=== PATIENT | male | born 1985 | race Caucasian/White ===

== ENCOUNTER 2017-03-23 16:11 | Inpatient (IN) | payer OTHER ==
[2017-03-23 17:54] VITALS: BMI 23.2
--- NOTE | 2017-03-23 19:56 | HP ---
COWS - Scale Resting Pulse: 0= [place] 80 or Below Sweatin= Chills/Flushing Restless Observation: 3= Extraneous Movement Pupil Size: 0= Normal to Room Light Bone or Joint Aches: 2= Severe Diffuse Aches Runny Nose/ Eye Tearin= Runny Nose/Eyes GI Upset > 30mins: 1= Stomach Cramp Tremor Observation: 2= Slight Tremor Visible Yawning Observation: 1= 1-2x During Session Anxiety or Irritability: 2=Irritable/Anxious Goose Flesh Skin: 0=Smooth Skin COWS Score: 14 Admission [facility] Chief Complaint: WITHDRAWAL SX Allergies/Adverse Reactions: Allergies Allergy/AdvReac Type Severity Reaction Status Date / Time No Known Allergies Allergy Verified 03/23/17 20:23 History of Present Illness: 31 YEARS OLD MALE WITH LONG HISTORY OF OPIOID NICOTINE DEPENDENCE, HAS TOOTH ACHE, POSITIVE PPD AND DEPRESSION IS ADMITTED TO DETOX Exam Limitations: No Limitations - Ebola screening Have you traveled outside of the country in the last 21 days: No Have you had contact with anyone from an Ebola affected area: No Have you been sick,other than usual withdrawal symptoms: No Do you have a fever: No - Review of Systems Constitutional: Chills, Changes in sleep, Weight Stable EENT: reports: Dental Problems (TOOTH ACHE) Respiratory: reports: No Symptoms reported Cardiac: reports: No Symptoms Reported GI: reports: Nausea, Poor Fluid Intake, Abdominal cramping : reports: No Symptoms Reported Musculoskeletal: reports: Back Pain, Joint Pain, Muscle Pain, Neck Pain Integumentary: reports: No Symptoms Reported Neuro: reports: Tremors Endocrine: reports: No Symptoms Reported Hematology: reports: No Symptoms Reported Psychiatric: reports: Judgement Intact, Orientated x3, Anxious, Depressed Other Systems: Reviewed and Negative Patient History - Patient Medical History Hx Anemia: No Hx Asthma: No Hx Chronic Obstructive Pulmonary Disease (COPD): No Hx Cancer: No Hx Cardiac Disorders: No Hx Congestive Heart Failure: No Hx Hypertension: No Hx Hypercholesterolemia: No Hx Pacemaker: No HX Cerebrovascular Accident: No Hx Seizures: No Hx Dementia: No Hx Diabetes: No Hx Gastrointestinal Disorders: No Hx Liver Disease: No Hx Genitourinary Disorders: No Hx Sexually Transmitted Disorders: No Hx Renal Disease (ESRD): No Hx Thyroid Disease: No Hx Human Immunodeficiency Virus (HIV): No Hx Hepatitis C: No Hx Depression: Yes Hx Suicide Attempt: No Hx Bipolar Disorder: No Hx Schizophrenia: No - Patient Surgical History Past Surgical History: Yes Hx Neurologic Surgery: No Hx Cataract Extraction: No Hx Cardiac Surgery: No Hx Lung Surgery: No Hx Breast Surgery: No Hx Breast Biopsy: No Hx Abdominal Surgery: No Hx Appendectomy: No Hx Cholecystectomy: No Hx Genitourinary Surgery: No Hx Orthopedic Surgery: No Other Surgical History: s/p tonsillectomy DURING CHILDHOOD Anesthesia Reaction: No - PPD History Previous Implant?: Yes Documented Results: Positive w/o proof Implanted On Prior [facility] Admission?: Yes Date: 09/03/15 Results: 15mm PPD to be Administered?: No - Smoking Cessation Smoking history: Current every day smoker Have you smoked in the past 12 months: Yes Aproximately how many cigarettes per day: 20 Cigars Per Day: 0 Hx Chewing Tobacco Use: No Initiated information on smoking cessation: Yes 'Breaking Loose' booklet given: 03/23/17 - Substance & Tx. History Hx Alcohol Use: No Hx Substance Use: Yes Substance Use Type: Alcohol, Cocaine, Opiates Hx Substance Use Treatment: Yes - Substances Abused Heroin Route: Inhalation Frequency: Daily Amount used: 5 BAGS Age of first use: 28 Date of Last Use: 03/22/17 Family Disease History - Family Disease History Family History: Unremarkable Admission Physical Exam BHS - Vital Signs Vital Signs: Vital Signs - 24 hr 03/23/17 17:48 Temperature 97.4 F L Pulse Rate 73 Respiratory 18 Rate Blood Pressure 109/66 - Physical General Appearance: Yes: Appropriately Dressed, Mild Distress, Thin, Tremorous, Irritable, Sweating, Anxious HEENTM: Yes: Hearing grossly Normal, Normal ENT Inspection, Normocephalic, Normal Voice Respiratory: Yes: Chest Non-Tender, Lungs Clear, Normal Breath Sounds, No Respiratory Distress, No Accessory Muscle Use Neck: Yes: Supple, Trachea in good position Breast: Yes: Breasts Symetrical Cardiology: Yes: Regular Rhythm, Regular Rate, S1, S2 Abdominal: Yes: Non Tender, Soft Genitourinary: Yes: Within Normal Limits Back: Yes: Normal Inspection Musculoskeletal: Yes: full range of Motion, Gait Steady, Back pain, Muscle Pain Extremities: Yes: Normal Inspection, Normal Range of Motion, Non-Tender, Tremors 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: Yes: Fully Oriented, Alert, Motor Strength 5/5, Normal Response, Depressed Affect Integumentary: Yes: Warm Lymphatic: Yes: Within Normal Limits - Diagnostic (1) Opioid dependence with withdrawal Status: Acute (2) Nicotine dependence Status: Acute Qualifiers: Nicotine product type: cigarettes Substance use status: in withdrawal Qualified Code(s): F17.213 - Nicotine dependence, cigarettes, with withdrawal (3) Positive PPD, treated Status: Resolved (4) Depression Status: Suspected Qualifiers: Depression Type: dysthymia Qualified Code(s): F34.1 - Dysthymic disorder (5) Atypical toothache Status: Acute Comment: LIDOCAINE BEFORE EACH MEAL Cleared for Admission [facility] - Detox or Rehab [facility] Level of Care: Medically Managed Detox Regimen/Protocol: Methadone [facility] Breath Alcohol Content Breath Alcohol Content: 0 Urine Drug Screen - Results Drug Screen Negative: No Urine Drug Screen Results: BOB-Cocaine, OPI-Opiates, MTD-Methadone
[2017-03-23] MEDS ORDERED: ACETAMINOPHEN 325 MG TABLET (FP) PO PRN (20:04)
[2017-03-23] MEDS ORDERED: METHADONE HCL 10 MG TABLET (FOR DETOX USE ONLY) PO ONE ×2 (20:04→23:00)
[2017-03-23] MEDS ORDERED: IBUPROFEN 400 MG TABLET (FP) PO PRN (20:04)
[2017-03-23] MEDS ORDERED: diphenhydrAMINE HCL 50 MG CAPSULE PO PRN (20:04)
[2017-03-23] MEDS ORDERED: MAG HYDROX/AL HYDROX/SIMETH 30 ML UNIT-DOSE CUP PO PRN (20:04)
[2017-03-23] MEDS ORDERED: MENTHOL/PHENOL 1 EACH UD MM PRN (20:04)
[2017-03-23] MEDS ORDERED: guaiFENesin/D-METHORPHAN HB 10 ML UNIT-DOSE CUPS PO PRN (20:04)
[2017-03-23] MEDS ORDERED: MAGNESIUM HYDROX 2400MG/30ML ORAL SUSPENSION 30 ML CUP PO PRN (20:04)
[2017-03-23] MEDS ORDERED: MAGNESIUM CITRATE 300 ML BOTTLE PO PRN (20:04)
[2017-03-23] MEDS ORDERED: P-EPHED 60MG/TRIPROLIDI 2.5MG TABLET PO PRN (20:04)
[2017-03-23] MEDS ORDERED: LOPERAMIDE HCL 2 MG CAPSULE PO PRN (20:04)
[2017-03-23] MEDS ORDERED: hydrOXYzine PAMOATE 50 MG CAPSULE (FP) PO PRN (20:04)
[2017-03-23] MEDS: diazePAM 5 MG TABLET PO PRN (21:08)
[2017-03-23] MEDS: NICOTINE POLACRILEX 4 MG GUM BC PRN (21:10)
[2017-03-23] MEDS ORDERED: THIAMINE HCL 100 MG TABLET (FP) PO SCH (22:00)
[2017-03-24 00:14] LABS: URINE APPEARANCE CLEAR; URINE BILIRUBIN NEGATIVE (NEGATIVE); URINE BLOOD NEGATIVE (NEGATIVE); URINE COLOR DKYELLOW; URINE GLUCOSE (UA) NEGATIVE (NEGATIVE); URINE KETONE TRACE (NEGATIVE); URINE LEUK ESTERASE NEGATIVE (NEGATIVE); URINE NITRITE NEGATIVE (NEGATIVE); URINE PROTEIN NEGATIVE (NEGATIVE); URINE UROBILINOGEN NEGATIVE E.U./dl (0.2-1.0)
[2017-03-24] MEDS: NICOTINE POLACRILEX 4 MG GUM BC PRN ×5 (00:27→14:03)
[2017-03-24] MEDS: diazePAM 5 MG TABLET PO PRN ×3 (04:24→14:02)
[2017-03-24] MEDS: LIDOCAINE VISCOUS 2% ORAL/TOP 20 ML UNIT-DOSE CUP MM SCH ×2 (08:45→12:30)
[2017-03-24] MEDS ORDERED: TRIMETHOBENZAMIDE HCL 300 MG CAPSULE PO PRN (09:32)
[2017-03-24 09:51] LABS: MCH 30.4 pg (25.7-33.7); MEAN CELL VOLUME 89.4 fl (80-96); MEAN PLT VOLUME 7.8 fl (7.5-11.1); PLATELET COUNT 194 K/MM3 (134-434); WHITE BLOOD COUNT 7.9 K/mm3 (4.0-10.0)
[2017-03-24] MEDS ORDERED: PRENATAL VITAMINS W/ FOLIC ACID TABLET (FP) PO SCH (10:00)
[2017-03-24] MEDS ORDERED: METHADONE HCL 10 MG TABLET (FOR DETOX USE ONLY) PO ONE (10:00)
[2017-03-24] MEDS ORDERED: NICOTINE 21 MG/24 HOURS TOPICAL PATCH TD SCH (10:00)
[2017-03-24 10:13] LABS: ALBUMIN 3.8 g/dl (3.4-5.0); ALK PHOS 66 U/L (45-117); ANION GAP 10 (8-16); BILIRUBIN,TOTAL 0.3 mg/dL (0.2-1.0); CALCIUM 8.9 mg/dL (8.5-10.1); CO2 27 mmol/L (21-32); COCKROFT - GAULT 90.71; CREATININE 1.1 mg/dL (0.7-1.3); GLUCOSE,RANDOM 89 mg/dL (74-106); SGOT/AST 9 U/L (15-37); SGPT/ALT 14 U/L (12-78); TOT PROT 6.9 g/dl (6.4-8.2)
--- NOTE | 2017-03-24 11:27 | PN ---
S COWS - Scale Resting Pulse: 1= [place] 81-100 Sweatin=Flushed/Facial Moisture Restless Observation: 1= Difficult to Sit Still Pupil Size: 0= Normal to Room Light Bone or Joint Aches: 2= Severe Diffuse Aches Runny Nose/ Eye Tearin= Runny Nose/Eyes GI Upset > 30mins: 1= Stomach Cramp Tremor Observation of Outstretched Hands: 2= Slight Tremor Visible Yawning Observation: 2= >3x During Session Anxiety or Irritability: 2=Irritable/Anxious Goose Flesh Skin: 3=Piloerection COWS Score: 18 S Progress Note (SOAP) Subjective: irritable agitation chills sweats interrupted sleep body aches nausea Objective: 03/24/17 11:26 Vital Signs Temperature 98.4 F 03/24/17 11:00 Pulse Rate 82 03/24/17 11:00 Respiratory Rate 16 03/24/17 11:00 Blood Pressure 119/73 03/24/17 11:00 O2 Sat by Pulse Oximetry (%) Laboratory Tests 03/23/17 03/24/17 03/24/17 23:50 07:00 07:00 WBC 7.9 RBC 4.84 Hgb 14.7 Hct 43.3 MCV 89.4 MCHC 34.0 RDW 13.0 Plt Count 194 MPV 7.8 Sodium 143 Potassium 3.6 Chloride 106 Carbon Dioxide 27 Anion Gap 10 BUN 14 D Creatinine 1.1 D Creat Clearance w eGFR > 60 Random Glucose 89 Calcium 8.9 Total Bilirubin 0.3 AST 9 L D ALT 14 D Alkaline Phosphatase 66 Total Protein 6.9 Albumin 3.8 Urine Color Dkyellow Urine Appearance Clear Urine pH 5.0 Ur Specific [place] 1.020 Urine Protein Negative Urine Glucose (UA) Negative Urine Ketones Trace H Urine Blood Negative Urine Nitrite Negative Urine Bilirubin Negative Urine Urobilinogen Negative Ur Leukocyte Esterase Negative RPR Titer 03/24/17 07:00 WBC RBC Hgb Hct MCV MCHC RDW Plt Count MPV Sodium Potassium Chloride Carbon Dioxide Anion Gap BUN Creatinine Creat Clearance w eGFR Random Glucose Calcium Total Bilirubin AST ALT Alkaline Phosphatase Total Protein Albumin Urine Color Urine Appearance Urine pH Ur Specific [place] Urine Protein Urine Glucose (UA) Urine Ketones Urine Blood Urine Nitrite Urine Bilirubin Urine Urobilinogen Ur Leukocyte Esterase RPR Titer Nonreactive awake/alert ambulating no acute distress Assessment: 03/24/17 11:26 withdrawal sx Plan: continue detox increase fluids tigan po
--- NOTE | 2017-03-24 15:07 | EKG ---
Test Reason : Blood Pressure : / mmHG Vent. Rate : 093 BPM Atrial Rate : 093 BPM P-R Int : 148 ms QRS Dur : 086 ms QT Int : 344 ms P-R-T Axes : 080 066 047 degrees QTc Int : 427 ms NORMAL SINUS RHYTHM NORMAL ECG NO PREVIOUS ECGS AVAILABLE Confirmed by ASH CARRENO MD ([id number]) on 03/24/2017 3:07:08 PM Referred By: Confirmed By:ASH CARRENO MD
[2017-03-24] MEDS ORDERED: CYCLOBENZAPRINE HCL 10 MG TABLET (FP) PO PRN (16:30)
--- NOTE | 2017-03-24 16:46 | CONSULT ---
[facility] Psychiatric Consult - Data Date of interview: 03/24/17 Admission source: [facility] Identifying data: Readmission to [facility] for this 31 y/o [place]-born male seeking detox treatment,on ,for heroin and cocaine dependence.Patient is single without children,domiciled,unemployed and supported by relatives. Substance Abuse History: - Smoking Cessation. Smoking history: Current every day smoker. Have you smoked in the past 12 months: Yes. Aproximately how many cigarettes per day: 20. Cigars Per Day: 0. Hx Chewing Tobacco Use: No. Initiated information on smoking cessation: Yes. 'Breaking Loose' booklet given : 03/23/17. - Substance & Tx. History. Hx Alcohol Use: No. Hx Substance Use: Yes. Substance Use Type: Alcohol, Cocaine, Opiates. Hx Substance Use Treatment : Yes. - Substances Abused. Heroin. Route: Inhalation. Frequency: Daily. Amount used: 5 BAGS. Age of first use: 28. Date of Last Use: 03/22/17. Confirmed by patient. Medical History: Good general health.Remote history of tonsillectomy (childhood) . Psychiatric History: Patient denies. Physical/Sexual Abuse/Trauma History: Patient denies. Additional Comment: Urine Drug Screen Results: BOB-Cocaine, OPI-Opiates, MTD- Methadone.Noted. Mental Status Exam - Mental Status Exam Alert and Oriented to: Time, Place, Person Cognitive Function: Good Patient Appearance: Unkempt, Disheveled Mood: Nervous, Withdrawn, Anxious Affect: Mood Congruent Patient Behavior: Fatigued, Appropriate, Cooperative Speech Pattern: Clear Voice Loudness: Normal Thought Process: Goal Oriented Thought Disorder: Not Present Hallucinations: Denies Suicidal Ideation: Denies Homicidal Ideation: Denies Insight/Judgement: Poor Sleep: Poorly, Difficulty falling asleep Appetite: Fair Muscle strength/Tone: Normal Gait/Station: Normal Psychiatric Findings - Problem List ([place] 1, 2,3) (1) Opioid dependence with withdrawal Current Visit: Yes Status: Acute (2) Cocaine dependence Current Visit: Yes Status: Acute (3) Nicotine dependence Current Visit: Yes Status: Acute Qualifiers: Nicotine product type: cigarettes Substance use status: in withdrawal Qualified Code(s): F17.213 - Nicotine dependence, cigarettes, with withdrawal (4) Substance induced mood disorder Current Visit: Yes Status: Acute (5) Positive PPD, treated Current Visit: Yes Status: Resolved (6) Insomnia Current Visit: Yes Status: Acute - Initial Treatment Plan Initial Treatment Plan: Psychoeducation.Detoxification.Ambien 10 mg po hs.Patient is made aware of the potential for parasomnias.Consent (verbal) given for treatment with zolpidem.Observation.
[2017-03-24] MEDS ORDERED: ZOLPIDEM TARTRATE 10 MG TABLET (PARK CARE ONLY) PO PRN (16:56)
[2017-03-24] MEDS ORDERED: cloNIDine HCL 0.1 MG TABLET PO ONE (17:00)
[2017-03-24 18:19] VITALS: BP 104/63; PULSE 73; TEMP 99
[2017-03-25] MEDS ORDERED: METHADONE HCL 5 MG TABLET (FOR DETOX USE ONLY) PO ONE (10:00)
[2017-03-26] MEDS ORDERED: METHADONE HCL 5 MG TABLET (FOR DETOX USE ONLY) PO ONE (10:00)
[2017-03-27] MEDS ORDERED: METHADONE HCL 10 MG TABLET (FOR DETOX USE ONLY) PO ONE (10:00)
[2017-03-28] MEDS ORDERED: METHADONE HCL 5 MG TABLET (FOR DETOX USE ONLY) PO ONE (06:00)
--- NOTE | 2017-03-31 12:01 | DS ---
[facility] Detox Discharge Summary Admission Date: 03/23/17 Discharge Date: 03/24/17 - History Present History: Cocaine Dependence, Opioid Dependence - Physical Exam Results Vital Signs: Vital Signs Temperature 99.0 F 03/24/17 18:17 Pulse Rate 73 03/24/17 18:17 Respiratory Rate 18 03/24/17 18:17 Blood Pressure 104/63 03/24/17 18:17 O2 Sat by Pulse Oximetry (%) - Treatment Hospital Course: Detox Protocol Followed - Medication Discharge Medications: Ambulatory Orders NK [No Known Home Medication] 03/23/17 - Diagnosis (1) Anxiety Status: Chronic (2) Atypical toothache Status: Acute (3) Cannabis dependence Status: Chronic (4) Cocaine dependence Status: Chronic Qualifiers: Complication of substance-induced condition: with unspecified complication (5) Nicotine dependence Status: Acute Qualifiers: Nicotine product type: cigarettes Substance use status: in withdrawal Qualified Code(s): F17.213 - Nicotine dependence, cigarettes, with withdrawal - AMA Did Patient Leave Against Medical Advice: Yes
== END 2017-03-24 17:26 | disposition left against medical advice (07) | DRG 770 ==
LOC: YASAS 16:11 → Y6N 20:22
PROVIDERS: ADMIT Internal Medicine Addiction Medicine; ATTEND Internal Medicine Addiction Medicine
PROC: HZ2ZZZZ Detoxification Services for Substance Abuse Treatment (ICD-10-PCS; principal; 2017-03-23)
DX: F11.23 Opioid dependence with withdrawal (principal); F14.20 Cocaine dependence, uncomplicated; F17.213 Nicotine dependence, cigarettes, with withdrawal; F19.24 Other psychoactive substance dependence with psychoactive substance-induced mood disorder; F34.1 Dysthymic disorder; R76.11 Nonspecific reaction to tuberculin skin test without active tuberculosis; G47.00 Insomnia, unspecified
CPT/HCPCS: 36415; 71020-TC; 80053; 81003; 85027; 86593; 93005; 93010

== ENCOUNTER 2018-03-22 14:38 | Inpatient (IN) | payer OTHER ==
[2018-03-22 17:50] VITALS: BMI 21.9
--- NOTE | 2018-03-22 19:41 | HP ---
COWS - Scale Resting Pulse: 0= [place] 80 or Below Sweatin= Chills/Flushing Restless Observation: 1= Difficult to Sit Still Pupil Size: 1= Pupils >than Normal Bone or Joint Aches: 1= Mild Discomfort Runny Nose/ Eye Tearin= Runny Nose/Eyes GI Upset > 30mins: 1= Stomach Cramp Tremor Observation: 1= Tremor Marty, Not Seen Yawning Observation: 1= 1-2x During Session Anxiety or Irritability: 1=Feels Anxious/Irritable Goose Flesh Skin: 0=Smooth Skin COWS Score: 10 Admission ROS S - HPI Chief Complaint: " I have a problem with opiates, sometimes I use methadone" heroin withdrawal symptoms Allergies/Adverse Reactions: Allergies Allergy/AdvReac Type Severity Reaction Status Date / Time No Known Allergies Allergy Verified 03/22/18 17:50 History of Present Illness: 32 yo male with hx of heroin (paranasal) and nicotine dependence is here seeking detox. PMHX: depression and insomnia. Denies suicidal / homicidal ideation or suicide attempts. Last detox 7 moths ago at [facility]. Longest period of sobriety 5 days over the 5 years hx of heroin use. Denies hx of overdose, seizures or blackouts. Exam Limitations: No Limitations - Ebola screening Have you traveled outside of the country in the last 21 days: No Have you had contact with anyone from an Ebola affected area: No Have you been sick,other than usual withdrawal symptoms: No Do you have a fever: No - Review of Systems Constitutional: Chills, Changes in sleep, Weakness EENT: reports: Other (runny nose) Respiratory: reports: No Symptoms reported Cardiac: reports: Chest Pain (denies chest pain at this time, reports gets chest pain when he goes through withdrawal) GI: reports: Abdominal cramping : reports: No Symptoms Reported Musculoskeletal: reports: Back Pain, Joint Pain Integumentary: reports: No Symptoms Reported Neuro: reports: Headache (05/25), Weakness Endocrine: reports: Increased Thirst Hematology: reports: No Symptoms Reported Psychiatric: reports: Orientated x3, Depressed Other Systems: Reviewed and Negative Patient History - Patient Medical History Hx Anemia: No Hx Asthma: No Hx Chronic Obstructive Pulmonary Disease (COPD): No Hx Cancer: No Hx Cardiac Disorders: No Hx Congestive Heart Failure: No Hx Hypertension: No Hx Hypercholesterolemia: No Hx Pacemaker: No HX Cerebrovascular Accident: No Hx Seizures: No Hx Dementia: No Hx Diabetes: No Hx Gastrointestinal Disorders: No Hx Liver Disease: No Hx Genitourinary Disorders: No Hx Sexually Transmitted Disorders: No Hx Renal Disease (ESRD): No Hx Thyroid Disease: No Hx Human Immunodeficiency Virus (HIV): No Hx Hepatitis C: No Hx Depression: Yes Hx Suicide Attempt: No Hx Bipolar Disorder: No Hx Schizophrenia: No - Patient Surgical History Past Surgical History: Yes Hx Neurologic Surgery: No Hx Cataract Extraction: No Hx Cardiac Surgery: No Hx Lung Surgery: No Hx Breast Surgery: No Hx Breast Biopsy: No Hx Abdominal Surgery: No Hx Appendectomy: No Hx Cholecystectomy: No Hx Genitourinary Surgery: No Hx Section: No Hx Orthopedic Surgery: No Other Surgical History: s/p tonsillectomy DURING CHILDHOOD Anesthesia Reaction: No - PPD History Date: 09/03/15 Results: 15mm PPD to be Administered?: No - Reproductive History Patient is a Female of Child Bearing Age (11 -55 yrs old): No - Smoking Cessation Smoking history: Current every day smoker Have you smoked in the past 12 months: Yes Aproximately how many cigarettes per day: 20 Cigars Per Day: 0 Hx Chewing Tobacco Use: No Initiated information on smoking cessation: Yes 'Breaking Loose' booklet given: 03/22/18 - Substance & Tx. History Hx Alcohol Use: No Hx Substance Use: Yes Substance Use Type: Heroin - Substances Abused Heroin Route: SNIFF Frequency: Daily Amount used: 5 BAGS Age of first use: 29 Date of Last Use: 03/22/18 Family Disease History - Family Disease History Family Disease History: Heart Disease: Mother (, heart disease ), Other: Father (alive, no health problems ), Mother Admission Physical Exam S - Vital Signs Vital Signs: Vital Signs - 24 hr 03/22/18 17:15 Temperature 98.1 F Pulse Rate 78 Respiratory 18 Rate Blood Pressure 124/63 - Physical General Appearance: Yes: Disheveled, Thin, Sweating, Anxious, Other (malodorous) HEENTM: Yes: EOMI, Hearing grossly Normal, Normal ENT Inspection, Normocephalic , Normal Voice, KAILYN, Pharynx Normal, Tm's normal Respiratory: Yes: Chest Non-Tender, Lungs Clear, Normal Breath Sounds, No Respiratory Distress, No Accessory Muscle Use Neck: Yes: Within Normal Limits Breast: Yes: Breast Exam Deferred Cardiology: Yes: Regular Rhythm, Regular Rate Abdominal: Yes: Normal Bowel Sounds, Non Tender, Flat, Soft Genitourinary: Yes: Within Normal Limits Back: Yes: Within Normal Limits Musculoskeletal: Yes: full range of Motion, Gait Steady, Pelvis Stable, Back pain Extremities: Yes: Normal Capillary Refill, Normal Inspection, Normal Range of Motion, Non-Tender 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: 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: 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, Fully Oriented, Alert, Motor Strength 5/5, Depressed Affect Integumentary: Yes: Normal Color, Warm, Diaphoresis Lymphatic: Yes: Within Normal Limits - Diagnostic (1) Low back pain Current Visit: Yes Status: Acute Qualifiers: Chronicity: acute Back pain laterality: right Sciatica presence: without sciatica Qualified Code(s): M54.5 - Low back pain (2) Nicotine dependence Current Visit: Yes Status: Acute Qualifiers: Nicotine product type: cigarettes (3) Opioid dependence with withdrawal Current Visit: Yes Status: Acute (4) Anxiety and depression Current Visit: Yes Status: Acute Cleared for Admission [facility] - Detox or Rehab [facility] Level of Care: Medically Supervised Detox Regimen/Protocol: Methadone [facility] Breath Alcohol Content Breath Alcohol Content: 0 Urine Drug Screen - Results Drug Screen Negative: No Urine Drug Screen Results: OPI-Opiates, BZO-Benzodiazepines, MTD-Methadone
[2018-03-22] MEDS ORDERED: MAGNESIUM CITRATE 300 ML BOTTLE PO PRN (19:45)
[2018-03-22] MEDS ORDERED: METHADONE HCL 10 MG TABLET (FOR DETOX USE ONLY) PO ONE ×2 (19:45→23:00)
[2018-03-22] MEDS ORDERED: MAG HYDROX/AL HYDROX/SIMETH 30 ML UNIT-DOSE CUP PO PRN (19:45)
[2018-03-22] MEDS ORDERED: LOPERAMIDE HCL 2 MG CAPSULE PO PRN (19:45)
[2018-03-22] MEDS ORDERED: ACETAMINOPHEN 325 MG TABLET (FP) PO PRN (19:45)
[2018-03-22] MEDS ORDERED: MENTHOL/PHENOL 1 EACH UD MM PRN (19:45)
[2018-03-22] MEDS ORDERED: guaiFENesin/D-METHORPHAN HB 10 ML UNIT-DOSE CUPS PO PRN (19:45)
[2018-03-22] MEDS ORDERED: P-EPHED 60MG/TRIPROLIDI 2.5MG TABLET PO PRN (19:45)
[2018-03-22] MEDS ORDERED: hydrOXYzine PAMOATE 50 MG CAPSULE (FP) PO PRN (19:45)
[2018-03-22] MEDS ORDERED: MAGNESIUM HYDROX 2400MG/30ML ORAL SUSPENSION 30 ML CUP PO PRN (19:45)
[2018-03-22] MEDS ORDERED: LIDOCAINE 5% TOPICAL PATCH TP SCH (20:00)
[2018-03-22] MEDS: THIAMINE HCL 100 MG TABLET (FP) PO SCH (21:13)
[2018-03-22] MEDS: diazePAM 5 MG TABLET PO PRN (21:13)
[2018-03-22] MEDS: NICOTINE POLACRILEX 2 MG GUM BC PRN (21:17)
[2018-03-22] MEDS ORDERED: LIDOCAINE PATCH REMOVAL MC SCH (22:00)
[2018-03-22] MEDS ORDERED: MELATONIN 5 MG TABLETS PO PRN (22:00)
[2018-03-22] MEDS: LIDOCAINE PATCH REMOVAL MC SCH (22:41)
[2018-03-22 23:10] LABS: URINE APPEARANCE TURBID; URINE BILIRUBIN NEGATIVE (<2.0 mg/dL); URINE COLOR YELLOW; URINE GLUCOSE (UA) NEGATIVE (NEGATIVE); URINE KETONE TRACE (NEGATIVE); URINE LEUK ESTERASE NEGATIVE (NEGATIVE); URINE NITRITE NEGATIVE (NEGATIVE)
[2018-03-22 23:14] LABS: URINE PROTEIN 1+ (NEGATIVE)
[2018-03-22 23:18] LABS: URINE BACTERIA RARE /hpf (NONE SEEN); URINE HYALINE CAST 20 /lpf; URINE MUCUS MANY
[2018-03-23] MEDS: diazePAM 5 MG TABLET PO PRN ×4 (02:20→19:54)
[2018-03-23] MEDS: NICOTINE POLACRILEX 2 MG GUM BC PRN ×6 (02:21→22:10)
[2018-03-23] MEDS: PRENATAL VITAMINS W/ FOLIC ACID TABLET (FP) PO SCH (09:46)
[2018-03-23 09:51] LABS: HEMATOCRIT 39.7 % (35.4-49); MCH 31.1 pg (25.7-33.7); MCHC 35.3 g/dl (32.0-35.9); MEAN CELL VOLUME 88.1 fl (80-96); MEAN PLT VOLUME 7.9 fl (7.5-11.1); PLATELET COUNT 203 K/MM3 (134-434); RDW 13.6 % (11.9-15.9); WHITE BLOOD COUNT 7.5 K/mm3 (4.0-10.0)
--- NOTE | 2018-03-23 09:51 | EKG ---
Test Reason : Blood Pressure : / mmHG Vent. Rate : 076 BPM Atrial Rate : 076 BPM P-R Int : 162 ms QRS Dur : 088 ms QT Int : 374 ms P-R-T Axes : 079 071 054 degrees QTc Int : 420 ms NORMAL SINUS RHYTHM NORMAL ECG WHEN COMPARED WITH ECG OF 23-MAR-2017 20:14, NO SIGNIFICANT CHANGE WAS FOUND Confirmed by MD Moses Edward ([id number]) on 03/23/2018 9:51:31 AM Referred By: Confirmed By:Donnie Moses MD
[2018-03-23 09:56] LABS: CHLORIDE 107 mmol/L (98-107); POTASSIUM 3.7 mmol/L (3.5-5.1); SODIUM 141 mmol/L (136-145)
[2018-03-23] MEDS ORDERED: METHADONE HCL 10 MG TABLET (FOR DETOX USE ONLY) PO ONE (10:00)
[2018-03-23 10:03] LABS: ALBUMIN 3.7 g/dl (3.4-5.0); ALK PHOS 48 U/L (45-117); ANION GAP 7 (8-16); BILIRUBIN,TOTAL 0.3 mg/dL (0.2-1.0); BLOOD UREA NITROGEN 12 mg/dL (7-18); CALCIUM 8.6 mg/dL (8.5-10.1); CO2 27 mmol/L (21-32); CREATININE 0.9 mg/dL (0.7-1.3); GLUCOSE,RANDOM 171 mg/dL (74-106); SGOT/AST 10 U/L (15-37); SGPT/ALT 10 U/L (12-78); TOT PROT 6.6 g/dl (6.4-8.2)
[2018-03-23] MEDS: NICOTINE 21 MG/24 HOURS TOPICAL PATCH TD SCH (10:18)
[2018-03-23] MEDS: LIDOCAINE 5% TOPICAL PATCH TP SCH (10:42)
--- NOTE | 2018-03-23 11:29 | PN ---
BHS COWS - Scale Resting Pulse: 1= [place] 81-100 Sweatin=Flushed/Facial Moisture Restless Observation: 0= Sits Still Pupil Size: 0= Normal to Room Light Bone or Joint Aches: 2= Severe Diffuse Aches Runny Nose/ Eye Tearin= None GI Upset > 30mins: 2= Nausea/Diarrhea Tremor Observation of Outstretched Hands: 2= Slight Tremor Visible Yawning Observation: 1= 1-2x During Session Anxiety or Irritability: 2=Irritable/Anxious Goose Flesh Skin: 3=Piloerection COWS Score: 15 BHS Progress Note (SOAP) Subjective: Tremors, Anxious, Diarrhea, Stomach Cramping, Nausea, Sweating, Body Aches. Objective: PATIENT A & O X 3. NO ACUTE DISTRESS. 03/23/18 11:25 Vital Signs Temperature 97.0 F L 03/23/18 09:57 Pulse Rate 97 H 03/23/18 09:57 Respiratory Rate 74 H 03/23/18 09:57 Blood Pressure 92/58 03/23/18 09:57 O2 Sat by Pulse Oximetry (%) Laboratory Tests 03/22/18 03/23/18 03/23/18 18:17 07:30 07:30 WBC 7.5 RBC 4.50 Hgb 14.0 Hct 39.7 MCV 88.1 MCH 31.1 MCHC 35.3 RDW 13.6 Plt Count 203 MPV 7.9 Sodium 141 Potassium 3.7 Chloride 107 Carbon Dioxide 27 Anion Gap 7 L BUN 12 Creatinine 0.9 Creat Clearance w eGFR > 60 Random Glucose 171 H D Calcium 8.6 Total Bilirubin 0.3 AST 10 L ALT 10 L D Alkaline Phosphatase 48 D Total Protein 6.6 Albumin 3.7 Urine Color Yellow Urine Appearance Turbid Urine pH 5.0 Ur Specific [place] 1.034 Urine Protein 1+ H Urine Glucose (UA) Negative Urine Ketones Trace H Urine Blood Negative Urine Nitrite Negative Urine Bilirubin Negative Urine Urobilinogen 2.0 Ur Leukocyte Esterase Negative Urine WBC (Auto) 72 Urine RBC (Auto) 2 Urine Bacteria Rare Hyaline Casts 20 Urine Mucus Many LABS NOTED. RPR RESULT PENDING. 03/23/18 11:28 Assessment: 03/23/18 11:26 WITHDRAWAL SYMPTOMS. Plan: CONTINUE DETOX. INCREASE DAILY PO FLUID INTAKE. BGM ACBK FOR ELEVATED ADMISSION RANDOM GLUCOSE LEVEL. REPEAT UA FOR ADMISSION ABNORMALITIES.
--- NOTE | 2018-03-23 12:53 | CONSULT ---
[facility] Psychiatric Consult - Data Date of interview: 03/23/18 Admission source: [facility] Identifying data: Another admission to [facility] for this 32 y/o [place]-born male seeking detox treatment,on ,for heroin dependence.Patient is single without children,domiciled,unemployed and supported by relatives. Substance Abuse History: Confirmed by patient in this interview.Details in current [facility] report : Smoking history: Current every day smoker. Have you smoked in the past 12 months: Yes. Aproximately how many cigarettes per day: 20. Cigars Per Day: 0. Hx Chewing Tobacco Use: No. Initiated information on smoking cessation: Yes. 'Breaking Loose' booklet given: 03/22/18. - Substance & Tx. History. Hx Alcohol Use: No. Hx Substance Use: Yes. Substance Use Type : Heroin. - Substances Abused. Heroin. Route: SNIFF. Frequency: Daily. Amount used: 5 BAGS. Age of first use: 29. Date of Last Use: 03/22/18 Medical History: Patient endorses good general health.Remote history of tonsillectomy (childhood). Psychiatric History: Patient denies. Physical/Sexual Abuse/Trauma History: Patient denies. Additional Comment: Urine Drug Screen Results: OPI-Opiates, BZO-Benzodiazepines , MTD-Methadone.Noted. Mental Status Exam - Mental Status Exam Alert and Oriented to: Time, Place, Person Cognitive Function: Good Patient Appearance: Unkempt, Disheveled Mood: Nervous, Withdrawn Affect: Mood Congruent Patient Behavior: Fatigued, Appropriate, Cooperative Speech Pattern: Clear Voice Loudness: Normal Thought Process: Intact, Goal Oriented Thought Disorder: Not Present Hallucinations: Denies Suicidal Ideation: Denies Homicidal Ideation: Denies Insight/Judgement: Poor Sleep: Poorly, Difficulty falling asleep Appetite: Good Muscle strength/Tone: Normal Gait/Station: Normal Psychiatric Findings - Problem List ([place] 1, 2,3) (1) Opioid dependence with withdrawal Current Visit: Yes Status: Acute (2) Nicotine dependence Current Visit: Yes Status: Acute Qualifiers: Nicotine product type: cigarettes Substance use status: uncomplicated Qualified Code(s): F17.210 - Nicotine dependence, cigarettes, uncomplicated (3) Substance induced mood disorder Current Visit: Yes Status: Acute (4) Insomnia Current Visit: Yes Status: Acute - Initial Treatment Plan Initial Treatment Plan: Psychoeducation.Sleep hygiene.Detoxification in progress.Trazodone 100 mg po hs (patient's request).Mr Fofana is made aware of risk of priapism.Agrees with this careplan.Observation.
[2018-03-23] MEDS: THIAMINE HCL 100 MG TABLET (FP) PO SCH (22:08)
[2018-03-23] MEDS: traZODone HCL 100 MG TABLET (FP) PO SCH (22:08)
[2018-03-23] MEDS: LIDOCAINE PATCH REMOVAL MC SCH (22:08)
[2018-03-24 00:39] LABS: URINE APPEARANCE CLOUDY; URINE BILIRUBIN NEGATIVE (<2.0 mg/dL); URINE COLOR AMBER; URINE GLUCOSE (UA) NEGATIVE (NEGATIVE); URINE KETONE NEGATIVE (NEGATIVE); URINE LEUK ESTERASE NEGATIVE (NEGATIVE); URINE NITRITE NEGATIVE (NEGATIVE); URINE PROTEIN NEGATIVE (NEGATIVE); URINE UROBILINOGEN NEGATIVE mg/dL (0.2-1.0)
[2018-03-24] MEDS: diazePAM 5 MG TABLET PO PRN ×4 (05:08→20:43)
[2018-03-24] MEDS ORDERED: METHADONE HCL 5 MG TABLET (FOR DETOX USE ONLY) PO ONE (10:00)
[2018-03-24] MEDS: PRENATAL VITAMINS W/ FOLIC ACID TABLET (FP) PO SCH (10:08)
[2018-03-24] MEDS: LIDOCAINE 5% TOPICAL PATCH TP SCH (10:09)
[2018-03-24] MEDS: NICOTINE POLACRILEX 2 MG GUM BC PRN ×2 (10:11→12:36)
[2018-03-24] MEDS: NICOTINE 21 MG/24 HOURS TOPICAL PATCH TD SCH (10:49)
--- NOTE | 2018-03-24 12:13 | PN ---
BHS COWS - Scale Resting Pulse: 0= [place] 80 or Below Sweatin= Chills/Flushing Restless Observation: 0= Sits Still Pupil Size: 0= Normal to Room Light Bone or Joint Aches: 1= Mild Discomfort Runny Nose/ Eye Tearin= Runny Nose/Eyes GI Upset > 30mins: 0= None Tremor Observation of Outstretched Hands: 2= Slight Tremor Visible Yawning Observation: 2= >3x During Session Anxiety or Irritability: 2=Irritable/Anxious Goose Flesh Skin: 3=Piloerection COWS Score: 13 BHS Progress Note (SOAP) Subjective: Tremors, Fatigue, H/A, Body Aches. Objective: PATIENT A & O X 3. NO ACUTE DISTRESS. PATIENT DENIES ANY UNUSUAL URINARY SYMPTOMS (BURNING, PAIN, FREQUENCY, URGENCY). 03/24/18 12:10 Vital Signs Temperature 97.1 F L 03/24/18 06:06 Pulse Rate 58 L 03/24/18 06:06 Respiratory Rate 18 03/24/18 06:06 Blood Pressure 96/67 03/24/18 06:06 O2 Sat by Pulse Oximetry (%) Laboratory Tests 03/22/18 03/23/18 03/23/18 18:17 07:30 07:30 WBC 7.5 RBC 4.50 Hgb 14.0 Hct 39.7 MCV 88.1 MCH 31.1 MCHC 35.3 RDW 13.6 Plt Count 203 MPV 7.9 Sodium 141 Potassium 3.7 Chloride 107 Carbon Dioxide 27 Anion Gap 7 L BUN 12 Creatinine 0.9 Creat Clearance w eGFR > 60 POC Glucometer Random Glucose 171 H D Calcium 8.6 Total Bilirubin 0.3 AST 10 L ALT 10 L D Alkaline Phosphatase 48 D Total Protein 6.6 Albumin 3.7 Urine Color Yellow Urine Appearance Turbid Urine pH 5.0 Ur Specific [place] 1.034 Urine Protein 1+ H Urine Glucose (UA) Negative Urine Ketones Trace H Urine Blood Negative Urine Nitrite Negative Urine Bilirubin Negative Urine Urobilinogen 2.0 Ur Leukocyte Esterase Negative Urine WBC (Auto) 72 Urine RBC (Auto) 2 Urine Bacteria Rare Hyaline Casts 20 Urine Mucus Many RPR Titer 03/23/18 03/23/18 03/24/18 07:30 13:15 05:08 WBC RBC Hgb Hct MCV MCH MCHC RDW Plt Count MPV Sodium Potassium Chloride Carbon Dioxide Anion Gap BUN Creatinine Creat Clearance w eGFR POC Glucometer 120 Random Glucose Calcium Total Bilirubin AST ALT Alkaline Phosphatase Total Protein Albumin Urine Color [place] Urine Appearance Cloudy Urine pH 7.0 D Ur Specific [place] 1.023 Urine Protein Negative Urine Glucose (UA) Negative Urine Ketones Negative Urine Blood Negative Urine Nitrite Negative Urine Bilirubin Negative Urine Urobilinogen Negative Ur Leukocyte Esterase Negative Urine WBC (Auto) Urine RBC (Auto) Urine Bacteria Hyaline Casts Urine Mucus RPR Titer Nonreactive LABS NOTED. RESULTS OF REPEAT UA NOTED. 03/24/18 12:11 Assessment: 03/24/18 12:11 WITHDRAWAL SYMPTOMS. Plan: CONTINUE DETOX. INCREASE DAILY PO FLUID INTAKE. ENCOURAGE AMBULATION.
[2018-03-24] MEDS: NICOTINE POLACRILEX 4 MG GUM BUC PRN (20:44)
[2018-03-24] MEDS: LIDOCAINE PATCH REMOVAL MC SCH (21:08)
[2018-03-24] MEDS: traZODone HCL 100 MG TABLET (FP) PO SCH (22:03)
[2018-03-24] MEDS: THIAMINE HCL 100 MG TABLET (FP) PO SCH (22:03)
[2018-03-25] MEDS: diazePAM 5 MG TABLET PO PRN ×3 (07:39→17:31)
[2018-03-25] MEDS ORDERED: METHADONE HCL 5 MG TABLET (FOR DETOX USE ONLY) PO ONE (10:00)
[2018-03-25] MEDS: PRENATAL VITAMINS W/ FOLIC ACID TABLET (FP) PO SCH (10:04)
[2018-03-25] MEDS: NICOTINE 21 MG/24 HOURS TOPICAL PATCH TD SCH (10:07)
[2018-03-25] MEDS: LIDOCAINE 5% TOPICAL PATCH TP SCH (10:07)
[2018-03-25] MEDS: NICOTINE POLACRILEX 4 MG GUM BUC PRN ×2 (10:07→17:32)
--- NOTE | 2018-03-25 11:02 | PN ---
BHS Progress Note (SOAP) Subjective: Constipation, Stomach Cramping, Fatigue, Interrupted Sleep. Objective: PATIENT A & O X 3. NO ACUTE DISTRESS. 03/25/18 10:59 Vital Signs Temperature 96.3 F L 03/25/18 09:04 Pulse Rate 74 03/25/18 09:04 Respiratory Rate 18 03/25/18 09:04 Blood Pressure 102/55 03/25/18 09:04 O2 Sat by Pulse Oximetry (%) Laboratory Tests 03/22/18 03/23/18 03/23/18 18:17 07:30 07:30 WBC 7.5 RBC 4.50 Hgb 14.0 Hct 39.7 MCV 88.1 MCH 31.1 MCHC 35.3 RDW 13.6 Plt Count 203 MPV 7.9 Sodium 141 Potassium 3.7 Chloride 107 Carbon Dioxide 27 Anion Gap 7 L BUN 12 Creatinine 0.9 Creat Clearance w eGFR > 60 POC Glucometer Random Glucose 171 H D Calcium 8.6 Total Bilirubin 0.3 AST 10 L ALT 10 L D Alkaline Phosphatase 48 D Total Protein 6.6 Albumin 3.7 Urine Color Yellow Urine Appearance Turbid Urine pH 5.0 Ur Specific [place] 1.034 Urine Protein 1+ H Urine Glucose (UA) Negative Urine Ketones Trace H Urine Blood Negative Urine Nitrite Negative Urine Bilirubin Negative Urine Urobilinogen 2.0 Ur Leukocyte Esterase Negative Urine WBC (Auto) 72 Urine RBC (Auto) 2 Urine Bacteria Rare Hyaline Casts 20 Urine Mucus Many RPR Titer 03/23/18 03/23/18 03/24/18 07:30 13:15 05:08 WBC RBC Hgb Hct MCV MCH MCHC RDW Plt Count MPV Sodium Potassium Chloride Carbon Dioxide Anion Gap BUN Creatinine Creat Clearance w eGFR POC Glucometer 120 Random Glucose Calcium Total Bilirubin AST ALT Alkaline Phosphatase Total Protein Albumin Urine Color [place] Urine Appearance Cloudy Urine pH 7.0 D Ur Specific [place] 1.023 Urine Protein Negative Urine Glucose (UA) Negative Urine Ketones Negative Urine Blood Negative Urine Nitrite Negative Urine Bilirubin Negative Urine Urobilinogen Negative Ur Leukocyte Esterase Negative Urine WBC (Auto) Urine RBC (Auto) Urine Bacteria Hyaline Casts Urine Mucus RPR Titer Nonreactive 03/25/18 06:37 WBC RBC Hgb Hct MCV MCH MCHC RDW Plt Count MPV Sodium Potassium Chloride Carbon Dioxide Anion Gap BUN Creatinine Creat Clearance w eGFR POC Glucometer 91 Random Glucose Calcium Total Bilirubin AST ALT Alkaline Phosphatase Total Protein Albumin Urine Color Urine Appearance Urine pH Ur Specific [place] Urine Protein Urine Glucose (UA) Urine Ketones Urine Blood Urine Nitrite Urine Bilirubin Urine Urobilinogen Ur Leukocyte Esterase Urine WBC (Auto) Urine RBC (Auto) Urine Bacteria Hyaline Casts Urine Mucus RPR Titer LABS NOTED. Assessment: 03/25/18 10:59 WITHDRAWAL SYMPTOMS. Plan: CONTINUE DETOX. INCREASE DAILY PO FLUID INTAKE. PRN MOM FOR CONSTIPATION. ENCOURAGE AMBULATION.
--- NOTE | 2018-03-25 12:14 | PN ---
Psychiatric Progress Note Vital Signs: Vital Signs Period Temp Pulse Resp BP Sys/[place] Pulse Ox Last 24 Hr 96.3 F-98.5 F 68-80 16-18 87-103/52-62 Date of Session: 03/25/18 Chief Complaint:: "I can't sleep." HPI: Patient admitted to for opiate dependence. ROS: Unremarkable. Current Medications: Active Medications Generic Name Dose Route Start Last Admin Trade Name Freq PRN Reason Stop Dose Admin Acetaminophen 650 mg 03/22/18 19:45 Tylenol - PO Q4H PRN FEVER Al Hydroxide/Mg Hydroxide 30 ml 03/22/18 19:45 Mylanta Oral Suspension - PO Q6H PRN DYSPEPSIA Diazepam 10 mg 03/22/18 19:45 03/25/18 11:59 Valium - PO 03/25/18 19:44 10 mg Q4H PRN Administration WITHDRAWAL(CONT SUBST) Eucalyptus/Menthol/Phenol/Sorbitol 1 each 03/22/18 19:45 Cepastat Lozenge - MM Q4H PRN SORE THROAT Guaifenesin 10 ml 03/22/18 19:45 Robitussin Dm - PO Q6H PRN COUGH Hydroxyzine Pamoate 50 mg 03/22/18 19:45 Vistaril - PO Q4H PRN AGITATION Ibuprofen 400 mg 03/22/18 19:45 Motrin - PO Q6H PRN PAIN LEVEL 4-6 Lidocaine 1 patch 03/23/18 10:00 03/25/18 10:07 Lidoderm Patch - TP 1 patch DAILY ADDY Administration Loperamide HCl 4 mg 03/22/18 19:45 Imodium - PO Q6H PRN DIARRHEA Magnesium Citrate 300 ml 03/22/18 19:45 Citroma - PO Q48H PRN CONSTIPATION Magnesium Hydroxide 30 ml 03/22/18 19:45 Milk Of Magnesia - PO DAILY PRN CONSTIPATION Melatonin 5 mg 03/22/18 22:00 Melatonin PO HS PRN INSOMNIA Methadone HCl 5 mg 03/27/18 06:00 Dolophine - PO 03/27/18 06:01 ONCE@0600 ONE Methadone HCl 10 mg 03/26/18 10:00 Dolophine - PO 03/26/18 10:01 ONCE ONE Miscellaneous 1 each 03/22/18 22:00 03/24/18 21:08 Lidoderm Patch Removal MC Not Given DAILY@2200 ADDY Nicotine 21 mg 03/23/18 10:00 03/25/18 10:07 Nicoderm Patch - TD 21 mg DAILY ADDY Administration Nicotine Polacrilex 4 mg 03/24/18 14:14 03/25/18 10:07 Nicorette Gum - BUC 4 mg Q2H PRN Administration NICOTINE REPLACEMENT RX Multivit/Folic Acid/Iron 1 tab 03/23/18 10:00 03/25/18 10:04 Vitamins (Sjr) - PO 1 tab DAILY ADDY Administration Pseudoephedrine/Triprolidine 1 combo 03/22/18 19:45 Actifed - PO TID PRN NASAL CONGESTION Thiamine HCl 100 mg 03/22/18 22:00 03/24/18 22:03 Vitamin B1 - PO 100 mg HS ADDY Administration Trazodone HCl 100 mg 03/23/18 22:00 03/24/18 22:03 Desyrel - PO 100 mg HS ADDY Administration Medication(s) Change(s): Yes. Will increase trazodone to 150mg qhs. Current Side Effect: No Lab tests ordered: No Lab tests reviewed: Yes Provider note:: Cylinder Inspector And Tester met with patient whom requested a psychiatric reconsultation. Chart reviewed. Dr. Carlson note read and appreciated. Patient c/ o difficulty sleeping. Pt. is currently prescribed trazodone 100mg. Trazodone to be increased to 150mg. Pt. also encouraged to take the melatonin 5mg for sleep. Benefits and side effects discussed. Pt. made aware of the risk of priapism when accepting trazodone. Psychoeducation and sleep hygiene provided. Patient satisified and receptive to feedback. Will continue to monitor. Total face to face time:: 25 Mental Status Exam - Mental Status Exam Alert and Oriented to: Time, Place, Person Cognitive Function: Good Patient Appearance: Well Groomed Mood: Hopeful Affect: Mood Congruent Patient Behavior: Cooperative Speech Pattern: Appropriate Voice Loudness: Normal Thought Process: Intact, Goal Oriented Thought Disorder: Not Present Hallucinations: Denies Suicidal Ideation: Denies Homicidal Ideation: Denies Insight/Judgement: Poor Sleep: Poorly Muscle strength/Tone: Normal Gait/Station: Normal Psychiatric Treatment Plan - Problem List (1) Insomnia Current Visit: Yes (2) Nicotine dependence Current Visit: Yes Qualifiers: Nicotine product type: cigarettes Substance use status: uncomplicated Qualified Code(s): F17.210 - Nicotine dependence, cigarettes, uncomplicated (3) Opioid dependence with withdrawal Current Visit: Yes (4) Substance induced mood disorder Current Visit: Yes
[2018-03-25] MEDS: traZODone HCL 100 MG TABLET (FP) PO SCH (23:42)
[2018-03-25] MEDS: THIAMINE HCL 100 MG TABLET (FP) PO SCH (23:42)
[2018-03-25] MEDS: LIDOCAINE PATCH REMOVAL MC SCH (23:42)
[2018-03-26] MEDS ORDERED: METHADONE HCL 10 MG TABLET (FOR DETOX USE ONLY) PO ONE (10:00)
[2018-03-26] MEDS: PRENATAL VITAMINS W/ FOLIC ACID TABLET (FP) PO SCH (10:29)
[2018-03-26] MEDS: NICOTINE 21 MG/24 HOURS TOPICAL PATCH TD SCH (10:29)
[2018-03-26] MEDS: LIDOCAINE 5% TOPICAL PATCH TP SCH (10:30)
[2018-03-26] MEDS: NICOTINE POLACRILEX 4 MG GUM BUC PRN ×4 (10:31→20:53)
--- NOTE | 2018-03-26 12:03 | PN ---
BHS Progress Note (SOAP) Subjective: Sweating, Anxious. Objective: PATIENT A & O X 3, OBSERVED AMBULATING ON UNIT. NO ACUTE DISTRESS. 03/26/18 12:01 Vital Signs Temperature 96.1 F L 03/26/18 06:08 Pulse Rate 68 03/26/18 06:08 Respiratory Rate 18 03/26/18 06:30 Blood Pressure 78/47 03/26/18 06:08 O2 Sat by Pulse Oximetry (%) Laboratory Tests 03/22/18 03/23/18 03/23/18 18:17 07:30 07:30 WBC 7.5 RBC 4.50 Hgb 14.0 Hct 39.7 MCV 88.1 MCH 31.1 MCHC 35.3 RDW 13.6 Plt Count 203 MPV 7.9 Sodium 141 Potassium 3.7 Chloride 107 Carbon Dioxide 27 Anion Gap 7 L BUN 12 Creatinine 0.9 Creat Clearance w eGFR > 60 POC Glucometer Random Glucose 171 H D Calcium 8.6 Total Bilirubin 0.3 AST 10 L ALT 10 L D Alkaline Phosphatase 48 D Total Protein 6.6 Albumin 3.7 Urine Color Yellow Urine Appearance Turbid Urine pH 5.0 Ur Specific [place] 1.034 Urine Protein 1+ H Urine Glucose (UA) Negative Urine Ketones Trace H Urine Blood Negative Urine Nitrite Negative Urine Bilirubin Negative Urine Urobilinogen 2.0 Ur Leukocyte Esterase Negative Urine WBC (Auto) 72 Urine RBC (Auto) 2 Urine Bacteria Rare Hyaline Casts 20 Urine Mucus Many RPR Titer 03/23/18 03/23/18 03/24/18 07:30 13:15 05:08 WBC RBC Hgb Hct MCV MCH MCHC RDW Plt Count MPV Sodium Potassium Chloride Carbon Dioxide Anion Gap BUN Creatinine Creat Clearance w eGFR POC Glucometer 120 Random Glucose Calcium Total Bilirubin AST ALT Alkaline Phosphatase Total Protein Albumin Urine Color [place] Urine Appearance Cloudy Urine pH 7.0 D Ur Specific [place] 1.023 Urine Protein Negative Urine Glucose (UA) Negative Urine Ketones Negative Urine Blood Negative Urine Nitrite Negative Urine Bilirubin Negative Urine Urobilinogen Negative Ur Leukocyte Esterase Negative Urine WBC (Auto) Urine RBC (Auto) Urine Bacteria Hyaline Casts Urine Mucus RPR Titer Nonreactive 03/25/18 03/26/18 06:37 00:03 WBC RBC Hgb Hct MCV MCH MCHC RDW Plt Count MPV Sodium Potassium Chloride Carbon Dioxide Anion Gap BUN Creatinine Creat Clearance w eGFR POC Glucometer 91 107 Random Glucose Calcium Total Bilirubin AST ALT Alkaline Phosphatase Total Protein Albumin Urine Color Urine Appearance Urine pH Ur Specific [place] Urine Protein Urine Glucose (UA) Urine Ketones Urine Blood Urine Nitrite Urine Bilirubin Urine Urobilinogen Ur Leukocyte Esterase Urine WBC (Auto) Urine RBC (Auto) Urine Bacteria Hyaline Casts Urine Mucus RPR Titer LABS NOTED. Assessment: 03/26/18 12:01 WITHDRAWAL SYMPTOMS. Plan: CONTINUE DETOX. INCREASE DAILY PO FLUID INTAKE.
[2018-03-26] MEDS: IBUPROFEN 400 MG TABLET (FP) PO PRN ×2 (13:59→22:08)
[2018-03-26] MEDS: THIAMINE HCL 100 MG TABLET (FP) PO SCH (22:05)
[2018-03-26] MEDS: traZODone HCL 100 MG TABLET (FP) PO SCH (22:05)
[2018-03-26] MEDS: LIDOCAINE PATCH REMOVAL MC SCH (22:06)
[2018-03-27] MEDS ORDERED: METHADONE HCL 5 MG TABLET (FOR DETOX USE ONLY) PO ONE (06:00)
[2018-03-27 06:05] VITALS: TEMP 96.5
[2018-03-27 06:29] VITALS: BP 100/58; PULSE 76
[2018-03-27] MEDS: NICOTINE POLACRILEX 4 MG GUM BUC PRN (06:35)
--- NOTE | 2018-03-27 18:24 | DS ---
[facility] Detox Discharge Summary Admission Date: 03/22/18 Discharge Date: 03/27/18 - History Present History: Opioid Dependence Additional Comments: PATIENT WILL GO HOME FOR WEEKEND, THEN WILL CONTACT [facility] ADMISSIONS DEPT. ON 03/29/2018 TO INQUIRE ABOUT BED AVAILABILITY AT THAT TIME. PATIENT WAS DISCHARGED FROM DETOX UNIT IN STABLE MEDICAL CONDITION. Pertinent Past History: Low Back Pain, Insomnia, Nicotine Dependence, Anxiety, Depression. - Physical Exam Results Vital Signs: Vital Signs Temperature 96.5 F L 03/27/18 06:04 Pulse Rate 76 03/27/18 06:04 Respiratory Rate 18 03/27/18 06:04 Blood Pressure 100/58 03/27/18 06:04 O2 Sat by Pulse Oximetry (%) Pertinent Admission Physical Exam Findings: WITHDRAWAL SYMPTOMS. Laboratory Tests 03/22/18 03/23/18 03/23/18 18:17 07:30 07:30 WBC 7.5 RBC 4.50 Hgb 14.0 Hct 39.7 MCV 88.1 MCH 31.1 MCHC 35.3 RDW 13.6 Plt Count 203 MPV 7.9 Sodium 141 Potassium 3.7 Chloride 107 Carbon Dioxide 27 Anion Gap 7 L BUN 12 Creatinine 0.9 Creat Clearance w eGFR > 60 POC Glucometer Random Glucose 171 H D Calcium 8.6 Total Bilirubin 0.3 AST 10 L ALT 10 L D Alkaline Phosphatase 48 D Total Protein 6.6 Albumin 3.7 Urine Color Yellow Urine Appearance Turbid Urine pH 5.0 Ur Specific [place] 1.034 Urine Protein 1+ H Urine Glucose (UA) Negative Urine Ketones Trace H Urine Blood Negative Urine Nitrite Negative Urine Bilirubin Negative Urine Urobilinogen 2.0 Ur Leukocyte Esterase Negative Urine WBC (Auto) 72 Urine RBC (Auto) 2 Urine Bacteria Rare Hyaline Casts 20 Urine Mucus Many RPR Titer 03/23/18 03/23/18 03/24/18 07:30 13:15 05:08 WBC RBC Hgb Hct MCV MCH MCHC RDW Plt Count MPV Sodium Potassium Chloride Carbon Dioxide Anion Gap BUN Creatinine Creat Clearance w eGFR POC Glucometer 120 Random Glucose Calcium Total Bilirubin AST ALT Alkaline Phosphatase Total Protein Albumin Urine Color [place] Urine Appearance Cloudy Urine pH 7.0 D Ur Specific [place] 1.023 Urine Protein Negative Urine Glucose (UA) Negative Urine Ketones Negative Urine Blood Negative Urine Nitrite Negative Urine Bilirubin Negative Urine Urobilinogen Negative Ur Leukocyte Esterase Negative Urine WBC (Auto) Urine RBC (Auto) Urine Bacteria Hyaline Casts Urine Mucus RPR Titer Nonreactive 03/25/18 03/26/18 03/27/18 06:37 00:03 06:32 WBC RBC Hgb Hct MCV MCH MCHC RDW Plt Count MPV Sodium Potassium Chloride Carbon Dioxide Anion Gap BUN Creatinine Creat Clearance w eGFR POC Glucometer 91 107 122 Random Glucose Calcium Total Bilirubin AST ALT Alkaline Phosphatase Total Protein Albumin Urine Color Urine Appearance Urine pH Ur Specific [place] Urine Protein Urine Glucose (UA) Urine Ketones Urine Blood Urine Nitrite Urine Bilirubin Urine Urobilinogen Ur Leukocyte Esterase Urine WBC (Auto) Urine RBC (Auto) Urine Bacteria Hyaline Casts Urine Mucus RPR Titer LABS NOTED. - Treatment Hospital Course: Detox Protocol Followed, Detoxed Safely, Responded well, Discharged Condition Good, Rehab Referral Accepted Patient has Accepted a Rehab Referral to: [facility] ([place], [place] . - Medication Discharge Medications: Ambulatory Orders Trazodone HCl 150 mg PO HS #30 tablet 03/26/18 - Diagnosis (1) Anxiety and depression Status: Acute (2) Low back pain Status: Acute Qualifiers: Chronicity: acute Back pain laterality: right Sciatica presence: without sciatica Qualified Code(s): M54.5 - Low back pain (3) Nicotine dependence Status: Acute Qualifiers: Nicotine product type: cigarettes Substance use status: uncomplicated Qualified Code(s): F17.210 - Nicotine dependence, cigarettes, uncomplicated (4) Opioid dependence with withdrawal Status: Acute (5) Insomnia Status: Acute Qualifiers: Insomnia type: unspecified Qualified Code(s): G47.00 - Insomnia, unspecified (6) Substance induced mood disorder Status: Acute - AMA Did Patient Leave Against Medical Advice: No
== END 2018-03-27 09:00 | disposition home or self-care (01) | DRG 776 ==
LOC: YASAS 14:38 → Y3N 19:22
PROVIDERS: ADMIT Internal Medicine; ATTEND Internal Medicine
PROC: HZ2ZZZZ Detoxification Services for Substance Abuse Treatment (ICD-10-PCS; principal; 2018-03-22)
DX: F19.24 Other psychoactive substance dependence with psychoactive substance-induced mood disorder (principal); F17.210 Nicotine dependence, cigarettes, uncomplicated; F41.8 Other specified anxiety disorders; G47.00 Insomnia, unspecified; M54.5 Low back pain
CPT/HCPCS: 36415; 71046-TC-FY; 80053; 81003; 81015; 82962; 85027; 86593; 93005; 93010

== ENCOUNTER 2018-03-29 10:20 | Inpatient (IN) | payer OTHER ==
[2018-03-29 11:56] VITALS: BMI 22.6
--- NOTE | 2018-03-29 14:52 | HP ---
[facility] Rehab Assess/Revision - Admission History Admitted to Rehab from: [facility] (COMPLETED DETOX ON ON 03/27/18.) Date of Admission to Rehab: 03/29/18 - Vital signs Vital Signs: Vital Signs Period Temp Pulse Resp BP Sys/[place] Pulse Ox Last 24 Hr 98.1 F 112 18 126/76 - Findings Detox History & Physical reviewed: Yes Concur with findings: Yes Comments/Additional Findings: PT RETURNED TODAY FOR REHAB TREATMENT. ALERT O X 3. NAD. VSS. ADMIT TO REHAB Inpatient Rehab Admission - Initial Determination Are CD services needed?: Yes Free of communicable disease: Yes Not in need of hospitalization: Yes - Rehab Admission Criteria Patient is meeting Inpatient Rehab admission criteria:: Yes
[2018-03-29] MEDS ORDERED: IBUPROFEN 600 MG TABLET (FP) PO PRN (14:53)
[2018-03-29] MEDS ORDERED: MAG HYDROX/AL HYDROX/SIMETH 30 ML UNIT-DOSE CUP PO PRN (14:53)
[2018-03-29] MEDS ORDERED: MAGNESIUM HYDROX 2400MG/30ML ORAL SUSPENSION 30 ML CUP PO PRN (14:53)
[2018-03-29] MEDS ORDERED: ACETAMINOPHEN 325 MG TABLET (FP) PO PRN (14:53)
[2018-03-29] MEDS ORDERED: guaiFENesin/D-METHORPHAN HB 10 ML UNIT-DOSE CUPS PO PRN (14:53)
[2018-03-29] MEDS ORDERED: P-EPHED 60MG/TRIPROLIDI 2.5MG TABLET PO PRN (14:53)
[2018-03-29] MEDS ORDERED: hydrOXYzine PAMOATE 50 MG CAPSULE (FP) PO PRN (14:53)
[2018-03-29] MEDS ORDERED: MENTHOL/PHENOL 1 EACH UD MM PRN (14:53)
[2018-03-29] MEDS ORDERED: MAGNESIUM CITRATE 300 ML BOTTLE PO PRN (14:53)
[2018-03-29] MEDS ORDERED: LOPERAMIDE HCL 2 MG CAPSULE PO PRN (14:53)
[2018-03-29] MEDS ORDERED: CYCLOBENZAPRINE HCL 10 MG TABLET (FP) PO PRN (14:56)
[2018-03-29] MEDS: NICOTINE 21 MG/24 HOURS TOPICAL PATCH TD SCH (17:32)
[2018-03-29] MEDS: NICOTINE POLACRILEX 4 MG GUM BC PRN (17:33)
[2018-03-29 17:43] LABS: URINE APPEARANCE CLEAR; URINE BILIRUBIN NEGATIVE (<2.0 mg/dL); URINE COLOR YELLOW; URINE GLUCOSE (UA) NEGATIVE (NEGATIVE); URINE KETONE NEGATIVE (NEGATIVE); URINE LEUK ESTERASE NEGATIVE (NEGATIVE); URINE NITRITE NEGATIVE (NEGATIVE); URINE PROTEIN NEGATIVE (NEGATIVE); URINE UROBILINOGEN NEGATIVE mg/dL (0.2-1.0)
[2018-03-29] MEDS ORDERED: THIAMINE HCL 100 MG TABLET (FP) PO SCH (22:00)
[2018-03-29] MEDS ORDERED: MELATONIN 5 MG TABLETS PO PRN (22:00)
[2018-03-29] MEDS ORDERED: TRAZODONE 150 MG PO SCH (22:00)
[2018-03-30 06:28] VITALS: BP 95/60; PULSE 84; TEMP 97.8
[2018-03-30] MEDS: NICOTINE POLACRILEX 4 MG GUM BC PRN ×2 (06:33→09:32)
--- NOTE | 2018-03-30 06:55 | HP ---
Psychiatrist Admission - Data Date of interview: 03/30/18 Admission source: [facility] Identifying data: This is the second [facility] for this 32 years old [place] male, homeless, unemployed and supported by relatives. Medical History: Significant for low back pain and history of tonsillectomy as a child. Smokes cigarettes 1ppd Psychiatric History: Denies history of previous psychiatric treatment. However he was seen by Dr Carlson on 03/23/18 while recently in detox and at his request he was prescribed Trazadone 100 mg po HS for insomnia. Requests that Trazadone dosage be increased to 150 mg because current dosage is not effective Physical/Sexual Abuse/Trauma History: Patient denies history of emotional, physical or sexual abuse. Additional Comment: Reports history of 7 previous misdemeanor arrests. Denies being on probation Vital Signs: Vital Signs - 24 hr 03/29/18 03/30/18 03/30/18 11:51 00:30 03:30 Temperature 98.1 F Pulse Rate 112 H Respiratory 18 18 16 Rate Blood Pressure 126/76 03/30/18 06:27 Temperature 97.8 F Pulse Rate 84 Respiratory 16 Rate Blood Pressure 95/60 Allergies/Adverse Reactions: Allergies Allergy/AdvReac Type Severity Reaction Status Date / Time No Known Allergies Allergy Verified 03/29/18 13:29 Date of last physical exam: 03/23/18 Concur with the findings of this exam: Yes - Substance Abuse/Tx History Hx Alcohol Use: No Hx Substance Use: Yes Substance Use Type: Heroin (Started using heroin at age 29, consumes 5 bags daily. Last used on03/22/18) Hx Substance Use Treatment: Yes (3 previous inpatient detox & one inpt rehab admission @ [facility]) Mental Status Exam - Mental Status Exam Alert and Oriented to: Time, Place, Person Cognitive Function: Fair Patient Appearance: Well Groomed Mood: Depressed Affect: Constricted Patient Behavior: Cooperative Speech Pattern: Clear Voice Loudness: Normal Thought Process: Intact, Goal Oriented Hallucinations: Denies Suicidal Ideation: Denies Homicidal Ideation: Denies Insight/Judgement: Fair Sleep: Poorly Appetite: Poor Muscle strength/Tone: Normal Gait/Station: Normal Psychiatric Findings - Problem List ([place] 1, 2,3) (1) Opioid dependence Current Visit: Yes Status: Resolved (2) Nicotine dependence Current Visit: Yes Status: Chronic Qualifiers: Substance use status: in withdrawal (3) Substance-induced sleep disorder Current Visit: Yes Status: Acute (4) Substance-induced sleep disorder Current Visit: Yes Status: Acute (5) Low back pain Current Visit: No Status: Chronic Qualifiers: Chronicity: acute Back pain laterality: right Sciatica presence: without sciatica Qualified Code(s): M54.5 - Low back pain - Initial Treatment Plan Initial Treatment Plan: 1) Start Trazadone 150 mg po HS. 2) Monitor progress
[2018-03-30] MEDS: NICOTINE 21 MG/24 HOURS TOPICAL PATCH TD SCH (09:31)
[2018-03-30] MEDS ORDERED: PRENATAL VITAMINS W/ FOLIC ACID TABLET (FP) PO SCH (10:00)
[2018-03-30] MEDS ORDERED: traZODone HCL 50 MG TABLET (FP) PO SCH (22:00)
--- NOTE | 2018-04-01 12:18 | PN ---
S Progress Note Note: patient signed out AMA on 03/30/18, please see medical staff notes.
== END 2018-03-30 19:45 | disposition left against medical advice (07) | DRG 770 ==
LOC: YASAS 10:20 → Y5N 13:57
PROVIDERS: ADMIT Psychiatry & Neurology Psychiatry; ATTEND Psychiatry & Neurology Psychiatry
PROC: HZ42ZZZ Group Counseling for Substance Abuse Treatment, Cognitive-Behavioral (ICD-10-PCS; principal; 2018-03-29)
DX: F11.20 Opioid dependence, uncomplicated (principal); F17.210 Nicotine dependence, cigarettes, uncomplicated; F19.282 Other psychoactive substance dependence with psychoactive substance-induced sleep disorder; M54.5 Low back pain
CPT/HCPCS: 81003; 82962; 83036

== ENCOUNTER 2018-07-16 09:37 | Inpatient (IN) | payer OTHER ==
[2018-07-16 10:21] VITALS: BMI 21.2
--- NOTE | 2018-07-16 14:01 | HP ---
COWS - Scale Resting Pulse: 0= [place] 80 or Below Sweatin=Flushed/Facial Moisture Restless Observation: 3= Extraneous Movement Pupil Size: 2= Moderately Dilated Bone or Joint Aches: 2= Severe Diffuse Aches Runny Nose/ Eye Tearin= Runny Nose/Eyes GI Upset > 30mins: 3= Vomiting/Diarrhea Tremor Observation: 2= Slight Tremor Visible Yawning Observation: 2= >3x During Session Anxiety or Irritability: 2=Irritable/Anxious Goose Flesh Skin: 0=Smooth Skin COWS Score: 20 Admission ROS [facility] - HPI Chief Complaint: i need heip to stop using heroin,cocaine,and marijuana Allergies/Adverse Reactions: Allergies Allergy/AdvReac Type Severity Reaction Status Date / Time No Known Allergies Allergy Verified 07/16/18 10:43 History of Present Illness: this 33 years old mal e with heroin,cocaine and marijuana dependence,seeking detox,withdrawal symptom,last treatment [facility] 03/22/18 to 03/27/18 nicotine dependence multiple admissions in detox but keep relapsing no significanr period of sobriety Exam Limitations: No Limitations - Ebola screening Have you traveled outside of the country in the last 21 days: No Have you been sick,other than usual withdrawal symptoms: No - Review of Systems Constitutional: Chills, Loss of Appetite, Malaise, Night Sweats, Changes in sleep, Weakness, Unintentional Wgt. Loss EENT: reports: Tearing, Nose Congestion Respiratory: reports: No Symptoms reported Cardiac: reports: Palpitations GI: reports: Diarrhea, Nausea, Vomiting, Abdominal cramping : reports: No Symptoms Reported Musculoskeletal: reports: Back Pain, Joint Pain, Muscle Pain, Joint Stiffness Integumentary: reports: Dryness Neuro: reports: Headache, Tremors Endocrine: reports: No Symptoms Reported Hematology: reports: No Symptoms Reported Psychiatric: reports: Judgement Intact, Orientated x3 Patient History - Patient Medical History Hx Anemia: No Hx Asthma: No Hx Chronic Obstructive Pulmonary Disease (COPD): No Hx Cancer: No Hx Cardiac Disorders: No Hx Congestive Heart Failure: No Hx Hypertension: No Hx Hypercholesterolemia: No Hx Pacemaker: No HX Cerebrovascular Accident: No Hx Seizures: No Hx Dementia: No Hx Diabetes: No Hx Gastrointestinal Disorders: No Hx Liver Disease: No Hx Genitourinary Disorders: No Hx Sexually Transmitted Disorders: No Hx Renal Disease (ESRD): No Hx Thyroid Disease: No Hx Human Immunodeficiency Virus (HIV): No (last 2017 negative) Hx Hepatitis C: No Hx Depression: No Hx Suicide Attempt: No Hx Bipolar Disorder: No Hx Schizophrenia: No Other Medical History: no sicidal,no homicidal - Patient Surgical History Past Surgical History: Yes Hx Neurologic Surgery: No Hx Cataract Extraction: No Hx Cardiac Surgery: No Hx Lung Surgery: No Hx Breast Surgery: No Hx Breast Biopsy: No Hx Abdominal Surgery: No Hx Appendectomy: No Hx Cholecystectomy: No Hx Genitourinary Surgery: No Hx Section: No Hx Orthopedic Surgery: No Other Surgical History: s/p tonsillectomy DURING CHILDHOOD Anesthesia Reaction: No - PPD History Previous Implant?: (xray done at [facility] 03/2018) Documented Results: Positive w/proof Date: 09/03/15 Results: 15mm PPD to be Administered?: No - Smoking Cessation Smoking history: Current every day smoker Have you smoked in the past 12 months: Yes Aproximately how many cigarettes per day: 40 Cigars Per Day: 0 Hx Chewing Tobacco Use: No Initiated information on smoking cessation: Yes 'Breaking Loose' booklet given: 07/16/18 - Substances Abused Heroin Route: Inhalation Frequency: Daily Amount used: 1 bundle Age of first use: 29 Date of Last Use: 07/16/18 Cocaine Route: Inhalation Frequency: Daily Amount used: 40 dollars Age of first use: 29 Date of Last Use: 07/16/18 Family Disease History - Family Disease History Family Disease History: Heart Disease: Mother (, heart disease ), Other: Father (alive, no health problems ), Mother Admission Physical Exam S - Vital Signs Vital Signs: Vital Signs - 24 hr 07/16/18 10:02 Temperature 98.8 F Pulse Rate 66 Respiratory 18 Rate Blood Pressure 110/64 - Physical General Appearance: Yes: Moderate Distress, Tremorous, Irritable, Sweating, Anxious HEENTM: Yes: Normal ENT Inspection, KAILYN, Pharynx Normal Respiratory: Yes: Lungs Clear, Normal Breath Sounds, No Respiratory Distress Neck: Yes: Within Normal Limits, Supple, Trachea in good position Breast: Yes: Within Normal Limits Cardiology: Yes: Within Normal Limits, Regular Rhythm, Regular Rate, S1, S2 Abdominal: Yes: Within Normal Limits, Normal Bowel Sounds, Non Tender, Soft Genitourinary: Yes: Within Normal Limits Back: Yes: Muscle Spasm Musculoskeletal: Yes: full range of Motion, Back pain, Joint Stiffness, Muscle Pain Extremities: Yes: Normal Range of Motion, Tremors 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: Yes: Within Normal Limits, help desk intern II-XII NML intact, Fully Oriented, Alert, Motor Strength 5/5 Integumentary: Yes: Dry Lymphatic: Yes: Within Normal Limits - Diagnostic (1) Opioid dependence with withdrawal Current Visit: No Status: Chronic (2) Cocaine dependence Current Visit: No Status: Chronic Qualifiers: Complication of substance-induced condition: with unspecified complication (3) Low back pain Current Visit: No Status: Chronic Qualifiers: Chronicity: acute Back pain laterality: right Sciatica presence: without sciatica Qualified Code(s): M54.5 - Low back pain (4) Nicotine dependence Current Visit: No Status: Chronic Qualifiers: Substance use status: in withdrawal Cleared for Admission [facility] - Detox or Rehab [facility] Level of Care: Medically Managed Detox Regimen/Protocol: Methadone [facility] Breath Alcohol Content Breath Alcohol Content: 0 Urine Drug Screen - Results Drug Screen Negative: No Urine Drug Screen Results: THC-Marijuana, BOB-Cocaine, OPI-Opiates, BZO- Benzodiazepines, OXY-Oxycodone
[2018-07-16] MEDS ORDERED: P-EPHED 60MG/TRIPROLIDI 2.5MG TABLET PO PRN (14:10)
[2018-07-16] MEDS ORDERED: hydrOXYzine PAMOATE 25 MG CAPSULE (FP) PO PRN (14:10)
[2018-07-16] MEDS ORDERED: guaiFENesin/D-METHORPHAN HB 10 ML UNIT-DOSE CUPS PO PRN (14:10)
[2018-07-16] MEDS ORDERED: IBUPROFEN 400 MG TABLET (FP) PO PRN (14:10)
[2018-07-16] MEDS ORDERED: LOPERAMIDE HCL 2 MG CAPSULE PO PRN (14:10)
[2018-07-16] MEDS ORDERED: MAGNESIUM CITRATE 300 ML BOTTLE PO PRN (14:10)
[2018-07-16] MEDS ORDERED: MAG HYDROX/AL HYDROX/SIMETH 30 ML UNIT-DOSE CUP PO PRN (14:10)
[2018-07-16] MEDS ORDERED: MAGNESIUM HYDROX 2400MG/30ML ORAL SUSPENSION 30 ML CUP PO PRN (14:10)
[2018-07-16] MEDS ORDERED: ACETAMINOPHEN 325 MG TABLET (FP) PO PRN (14:10)
[2018-07-16] MEDS ORDERED: MENTHOL/PHENOL 1 EACH UD MM PRN (14:10)
[2018-07-16] MEDS ORDERED: METHADONE HCL 10 MG TABLET (FOR DETOX USE ONLY) PO ONE ×2 (15:00→23:00)
[2018-07-16] MEDS: NICOTINE 21 MG/24 HOURS TOPICAL PATCH TD SCH (15:40)
[2018-07-16] MEDS: diazePAM 5 MG TABLET PO PRN ×2 (15:40→20:34)
[2018-07-16] MEDS: NICOTINE POLACRILEX 2 MG GUM BUC PRN ×3 (15:41→22:35)
--- NOTE | 2018-07-16 15:49 | EKG ---
Test Reason : Blood Pressure : / mmHG Vent. Rate : 057 BPM Atrial Rate : 057 BPM P-R Int : 128 ms QRS Dur : 088 ms QT Int : 388 ms P-R-T Axes : -15 065 037 degrees QTc Int : 377 ms SINUS BRADYCARDIA OTHERWISE NORMAL ECG WHEN COMPARED WITH ECG OF 22-MAR-2018 21:29, NO SIGNIFICANT CHANGE WAS FOUND Confirmed by NASIR SWIFT MD ([id number]) on 07/16/2018 3:49:03 PM Referred By: Confirmed By:NASIR SWIFT MD
[2018-07-16 20:02] LABS: URINE APPEARANCE TURBID; URINE BILIRUBIN NEGATIVE (<2.0 mg/dL); URINE COLOR YELLOW; URINE GLUCOSE (UA) NEGATIVE (NEGATIVE); URINE KETONE TRACE (NEGATIVE); URINE LEUK ESTERASE NEGATIVE (NEGATIVE); URINE NITRITE NEGATIVE (NEGATIVE); URINE PROTEIN NEGATIVE (NEGATIVE); URINE UROBILINOGEN NEGATIVE mg/dL (0.2-1.0)
[2018-07-16] MEDS ORDERED: MELATONIN 5 MG TABLETS PO PRN (22:00)
[2018-07-16] MEDS: THIAMINE HCL 100 MG TABLET (FP) PO SCH (22:28)
[2018-07-17 09:55] LABS: HEMATOCRIT 44.5 % (35.4-49); HEMOGLOBIN 15.2 GM/dL (11.7-16.9); MCH 30.5 pg (25.7-33.7); MCHC 34.2 g/dl (32.0-35.9); MEAN CELL VOLUME 89.1 fl (80-96); MEAN PLT VOLUME 8.3 fl (7.5-11.1); PLATELET COUNT 203 K/MM3 (134-434); RBC 4.99 M/mm3 (4.00-5.60); RDW 13.1 % (11.9-15.9); WHITE BLOOD COUNT 8.1 K/mm3 (4.0-10.0)
[2018-07-17] MEDS ORDERED: METHADONE HCL 10 MG TABLET (FOR DETOX USE ONLY) PO ONE (10:00)
[2018-07-17 10:20] LABS: ALBUMIN 4.3 g/dl (3.4-5.0); ANION GAP 4 MMOL/L (8-16); BLOOD UREA NITROGEN 11 mg/dL (7-18); CALCIUM 9.1 mg/dL (8.5-10.1); CHLORIDE 104 mmol/L (98-107); CO2 31 mmol/L (21-32); GLUCOSE,RANDOM 101 mg/dL (74-106); POTASSIUM 4.3 mmol/L (3.5-5.1); SODIUM 139 mmol/L (136-145)
[2018-07-17 10:25] LABS: ALK PHOS 54 U/L (45-117); BILIRUBIN,TOTAL 0.3 mg/dL (0.2-1.0); SGOT/AST 14 U/L (15-37); SGPT/ALT 17 U/L (12-78); TOT PROT 7.8 g/dl (6.4-8.2)
[2018-07-17] MEDS: PRENATAL VITAMINS W/ FOLIC ACID TABLET (FP) PO SCH (10:36)
[2018-07-17] MEDS: diazePAM 5 MG TABLET PO PRN ×3 (10:36→21:56)
[2018-07-17] MEDS: NICOTINE 21 MG/24 HOURS TOPICAL PATCH TD SCH (10:36)
--- NOTE | 2018-07-17 17:31 | PN ---
[facility] COWS - Scale Resting Pulse: 0= [place] 80 or Below Sweatin= No chills or Flushing Restless Observation: 0= Sits Still Pupil Size: 0= Normal to Room Light Bone or Joint Aches: 0= None Runny Nose/ Eye Tearin= None GI Upset > 30mins: 0= None Tremor Observation of Outstretched Hands: 0= None Yawning Observation: 0= None Anxiety or Irritability: 0= None BHS Progress Note (SOAP) Subjective: pt laying in bed, states everything is fine. Obj: Vital Signs - 24 hr 07/16/18 07/17/18 07/17/18 21:04 00:30 03:30 Temperature 97.6 F Pulse Rate 66 Respiratory 16 18 18 Rate Blood Pressure 117/77 07/17/18 07/17/18 07/17/18 06:19 06:30 11:15 Temperature 97.7 F 98.4 F Pulse Rate 57 L 72 Respiratory 16 18 18 Rate Blood Pressure 107/72 116/81 07/17/18 14:38 Temperature 98.4 F Pulse Rate 76 Respiratory 18 Rate Blood Pressure 102/65 Laboratory Tests 07/16/18 07/17/18 07/17/18 18:30 06:00 06:00 WBC 8.1 RBC 4.99 Hgb 15.2 Hct 44.5 MCV 89.1 MCH 30.5 MCHC 34.2 RDW 13.1 Plt Count 203 MPV 8.3 Sodium 139 Potassium 4.3 Chloride 104 Carbon Dioxide 31 Anion Gap 4 L BUN 11 Creatinine 1.0 Creat Clearance w eGFR > 60 Random Glucose 101 D Calcium 9.1 Total Bilirubin 0.3 AST 14 L D ALT 17 D Alkaline Phosphatase 54 Total Protein 7.8 Albumin 4.3 Urine Color Yellow Urine Appearance Turbid Urine pH 5.0 Ur Specific [place] 1.028 Urine Protein Negative Urine Glucose (UA) Negative Urine Ketones Trace H Urine Blood Negative Urine Nitrite Negative Urine Bilirubin Negative Urine Urobilinogen Negative Ur Leukocyte Esterase Negative RPR Titer 07/17/18 06:00 WBC RBC Hgb Hct MCV MCH MCHC RDW Plt Count MPV Sodium Potassium Chloride Carbon Dioxide Anion Gap BUN Creatinine Creat Clearance w eGFR Random Glucose Calcium Total Bilirubin AST ALT Alkaline Phosphatase Total Protein Albumin Urine Color Urine Appearance Urine pH Ur Specific [place] Urine Protein Urine Glucose (UA) Urine Ketones Urine Blood Urine Nitrite Urine Bilirubin Urine Urobilinogen Ur Leukocyte Esterase RPR Titer Nonreactive labs and VS WNL Ass: pt here for heroin detox: continue methadone detox protocol
[2018-07-17] MEDS: NICOTINE POLACRILEX 2 MG GUM BUC PRN ×2 (17:32→21:59)
[2018-07-17] MEDS: THIAMINE HCL 100 MG TABLET (FP) PO SCH (21:59)
[2018-07-18] MEDS ORDERED: METHADONE HCL 5 MG TABLET (FOR DETOX USE ONLY) PO ONE (10:00)
[2018-07-18] MEDS: PRENATAL VITAMINS W/ FOLIC ACID TABLET (FP) PO SCH (10:16)
[2018-07-18] MEDS: diazePAM 5 MG TABLET PO PRN (10:16)
[2018-07-18] MEDS: NICOTINE 21 MG/24 HOURS TOPICAL PATCH TD SCH (10:17)
[2018-07-18] MEDS: NICOTINE POLACRILEX 2 MG GUM BUC PRN (10:17)
--- NOTE | 2018-07-18 10:47 | PN ---
BHS COWS - Scale Resting Pulse: 1= [place] 81-100 Sweatin= No chills or Flushing Restless Observation: 1= Difficult to Sit Still Pupil Size: 0= Normal to Room Light Bone or Joint Aches: 1= Mild Discomfort Runny Nose/ Eye Tearin= Nasal Congestion GI Upset > 30mins: 1= Stomach Cramp Tremor Observation of Outstretched Hands: 1= Tremor [place], Not Seen Yawning Observation: 0= None Anxiety or Irritability: 0= None Goose Flesh Skin: 0=Smooth Skin COWS Score: 6 BHS Progress Note (SOAP) Subjective: pt states feeling fine overall, 2nd day in detox O: Vital Signs - 24 hr 07/17/18 07/17/18 07/17/18 11:15 14:38 19:02 Temperature 98.4 F 98.4 F 98.4 F Pulse Rate 72 76 76 Respiratory 18 18 18 Rate Blood Pressure 116/81 102/65 96/58 07/17/18 07/18/18 07/18/18 22:30 00:30 03:30 Temperature Pulse Rate 72 Respiratory 18 18 18 Rate Blood Pressure 110/70 07/18/18 06:01 Temperature 97.5 F L Pulse Rate 56 L Respiratory 16 Rate Blood Pressure 96/63 Laboratory Tests 07/16/18 07/17/18 07/17/18 18:30 06:00 06:00 WBC 8.1 RBC 4.99 Hgb 15.2 Hct 44.5 MCV 89.1 MCH 30.5 MCHC 34.2 RDW 13.1 Plt Count 203 MPV 8.3 Sodium 139 Potassium 4.3 Chloride 104 Carbon Dioxide 31 Anion Gap 4 L BUN 11 Creatinine 1.0 Creat Clearance w eGFR > 60 Random Glucose 101 D Calcium 9.1 Total Bilirubin 0.3 AST 14 L D ALT 17 D Alkaline Phosphatase 54 Total Protein 7.8 Albumin 4.3 Urine Color Yellow Urine Appearance Turbid Urine pH 5.0 Ur Specific [place] 1.028 Urine Protein Negative Urine Glucose (UA) Negative Urine Ketones Trace H Urine Blood Negative Urine Nitrite Negative Urine Bilirubin Negative Urine Urobilinogen Negative Ur Leukocyte Esterase Negative RPR Titer 07/17/18 06:00 WBC RBC Hgb Hct MCV MCH MCHC RDW Plt Count MPV Sodium Potassium Chloride Carbon Dioxide Anion Gap BUN Creatinine Creat Clearance w eGFR Random Glucose Calcium Total Bilirubin AST ALT Alkaline Phosphatase Total Protein Albumin Urine Color Urine Appearance Urine pH Ur Specific [place] Urine Protein Urine Glucose (UA) Urine Ketones Urine Blood Urine Nitrite Urine Bilirubin Urine Urobilinogen Ur Leukocyte Esterase RPR Titer Nonreactive nl VS/Labs A/p: continue opioid detox protocol
[2018-07-18 11:05] VITALS: BP 118/74; PULSE 77; TEMP 97
--- NOTE | 2018-07-18 13:26 | PN ---
[facility] Progress Note Note: PT SIGNED OUT AMA STATING HE WANTS TO GO HOME TO SLEEP AND GET READY FOR HIS WORK. REPORTS HE IS NOT READY TO CONTINUE TREATMENT AT THIS TIME. ALL EFFORTS TO ENCOURAGE PATIENT WAS UNSUCCESSFUL PATIENT WAS VERY PLEASANT AND SAID 'I' M JUST BEING SINCERE WITH YOU, I'LL COME BACK SOME OTHER TIME", PT DID NOT WANT ANY FURTHER PERSUASIONS. ALERT O X 3. NAD.
--- NOTE | 2018-07-18 13:27 | DS ---
[facility] Detox Discharge Summary Admission Date: 07/16/18 Discharge Date: 07/18/18 - History Present History: Cocaine Dependence, Opioid Dependence Additional Comments: PT SIGNED OUT AMA Pertinent Past History: PLEASE SEE DX BELOW - Physical Exam Results Vital Signs: Vital Signs Temperature 97.0 F L 07/18/18 11:05 Pulse Rate 77 07/18/18 11:05 Respiratory Rate 07/18/18 11:05 Blood Pressure 118/74 07/18/18 11:05 O2 Sat by Pulse Oximetry (%) Pertinent Admission Physical Exam Findings: WITHDRAWAL SX Laboratory Tests 07/16/18 07/17/18 07/17/18 18:30 06:00 06:00 WBC 8.1 RBC 4.99 Hgb 15.2 Hct 44.5 MCV 89.1 MCH 30.5 MCHC 34.2 RDW 13.1 Plt Count 203 MPV 8.3 Sodium 139 Potassium 4.3 Chloride 104 Carbon Dioxide 31 Anion Gap 4 L BUN 11 Creatinine 1.0 Creat Clearance w eGFR > 60 Random Glucose 101 D Calcium 9.1 Total Bilirubin 0.3 AST 14 L D ALT 17 D Alkaline Phosphatase 54 Total Protein 7.8 Albumin 4.3 Urine Color Yellow Urine Appearance Turbid Urine pH 5.0 Ur Specific [place] 1.028 Urine Protein Negative Urine Glucose (UA) Negative Urine Ketones Trace H Urine Blood Negative Urine Nitrite Negative Urine Bilirubin Negative Urine Urobilinogen Negative Ur Leukocyte Esterase Negative RPR Titer 07/17/18 06:00 WBC RBC Hgb Hct MCV MCH MCHC RDW Plt Count MPV Sodium Potassium Chloride Carbon Dioxide Anion Gap BUN Creatinine Creat Clearance w eGFR Random Glucose Calcium Total Bilirubin AST ALT Alkaline Phosphatase Total Protein Albumin Urine Color Urine Appearance Urine pH Ur Specific [place] Urine Protein Urine Glucose (UA) Urine Ketones Urine Blood Urine Nitrite Urine Bilirubin Urine Urobilinogen Ur Leukocyte Esterase RPR Titer Nonreactive - Treatment Hospital Course: Discharged Condition Good - Diagnosis (1) Nicotine dependence Status: Acute Qualifiers: Substance use status: in withdrawal (2) Opioid dependence with withdrawal Status: Acute (3) Cocaine dependence, uncomplicated Status: Acute - AMA Did Patient Leave Against Medical Advice: Yes (AMA)
[2018-07-19] MEDS ORDERED: METHADONE HCL 5 MG TABLET (FOR DETOX USE ONLY) PO ONE (10:00)
[2018-07-20] MEDS ORDERED: METHADONE HCL 10 MG TABLET (FOR DETOX USE ONLY) PO ONE (10:00)
[2018-07-21] MEDS ORDERED: METHADONE HCL 5 MG TABLET (FOR DETOX USE ONLY) PO ONE (06:00)
== END 2018-07-18 12:59 | disposition left against medical advice (07) | DRG 770 ==
LOC: YASAS 09:37 → Y3N 14:56
PROC: HZ2ZZZZ Detoxification Services for Substance Abuse Treatment (ICD-10-PCS; principal; 2018-07-16)
DX: F11.23 Opioid dependence with withdrawal (principal); F14.20 Cocaine dependence, uncomplicated; F12.20 Cannabis dependence, uncomplicated; F17.210 Nicotine dependence, cigarettes, uncomplicated; F39 Unspecified mood [affective] disorder; M54.5 Low back pain
CPT/HCPCS: 36415; 80053; 81003; 85027; 86593; 93005; 93010

== ENCOUNTER 2019-05-16 13:35 | Inpatient (IN) | payer OTHER ==
[2019-05-16 17:14] VITALS: BMI 22.6
--- NOTE | 2019-05-16 18:23 | HP ---
"CIWA Score - Admission Criteria [facility] Guidelines: Admission for Medically Managed Detox: Requires at least one of the followin. CIWA greater than 12 2. Seizures within the past 24 hours 3. Delirium tremens within the past 24 hours 4. Hallucinations within the past 24 hours 5. Acute intervention needed for co occurring medical disorder 6. Acute intervention needed for co occurring psychiatric disorder 7. Severe withdrawal that cannot be handled at a lower level of care (continued vomiting, continued diarrhea, abnormal vital signs) requiring intravenous medication and/or fluids 8. Admission ROS S - [facility] Chief Complaint: Here for rehab. I just completed detox. Allergies/Adverse Reactions: Allergies Allergy/AdvReac Type Severity Reaction Status Date / Time No Known Allergies Allergy Verified 05/16/19 17:09 History of Present Illness: 33 yo presents w/post completion of detox at [facility] today and here for rehab. Patient states completed 6 nights for heroin and Xanax use disorder. Still c/o watery diarrhea, muscle stiffness, nausea, and lack of appetite. Heroin use since 28. Recent use abou2 2-4 bundles daily - nasal. States is really motivated to stay sober. Methadone (from detox) Benzo(Xanax) use began at age [age]. Was up to 6 mg/day (Would mix w/ heroin). U-tox + for BZO, FEN, OPI, MTD JOSE = 0. PMHx: Denies significant PMH Hx TB immunization as a child. Hx + PPD. 07/16/18 @ [facility]: EKG: NSB; 03/23/18 @ [facility]: CXR: W/o evidence of disease. MHHx: Depression. Denies thoughts of harming self or others. Search Terms: Anali Fofana, 1985 Search Date: 05/16/2019 06:23:21 PM The Drug Utilization Report below displays all of the controlled substance prescriptions, if any, that your patient has filled in the last twelve months. The information displayed on this report is compiled from pharmacy submissions to the Department, and accurately reflects the information as submitted by the pharmacies. This report was requested by: Gabriela Aparicio | Reference #: [id number] There are no results for the search terms that you entered. Search Terms: Anali Fofana, 1985 Search Date: 05/16/2019 06:24:16 PM States Searched: [place], [place], [place], [place], [place], [place], [place] The Drug Utilization Report below displays the controlled substance prescriptions, if any, that were dispensed in the indicated state(s). The information displayed on this report is compiled from requests submitted to other states' PMPs, and accurately reflects the information as returned by them. Blank morley indicate data not provided by other state. This report was requested by: Gabriela Aparicio | Reference #: [id number] Exam Limitations: No Limitations - Ebola screening Have you traveled outside of the country in the last 21 days: No Have you had contact with anyone from an Ebola affected area: No Have you been sick,other than usual withdrawal symptoms: No (Denies recent exposure to measles) Do you have a fever: No - Review of Systems Constitutional: Diaphoresis, Changes in sleep (Difficulty fallinh asleep) EENT: reports: No Symptoms Reported Respiratory: reports: No Symptoms reported Cardiac: reports: No Symptoms Reported GI: reports: Diarrhea (Watery, brown diarrhea x 6), Abdominal cramping (worse today) : reports: Burning (Burning at end of urination) Musculoskeletal: reports: Back Pain (back pain r/t withdrawal), Joint Pain ( pain r/t withdrawal), Muscle Pain (Generalized pain r/t withdrawal) Neuro: reports: Tremors Endocrine: reports: No Symptoms Reported Hematology: reports: No Symptoms Reported Psychiatric: reports: Judgement Intact, Orientated x3, Anxious, Depressed ( Denies thoughts of harming self or others) Patient History - Patient Medical History Hx Anemia: No Hx Asthma: No Hx Chronic Obstructive Pulmonary Disease (COPD): No Hx Cancer: No Hx Cardiac Disorders: No Hx Congestive Heart Failure: No Hx Hypertension: No Hx Hypercholesterolemia: No Hx Pacemaker: No HX Cerebrovascular Accident: No Hx Seizures: No Hx Dementia: No Hx Diabetes: No Hx Gastrointestinal Disorders: No Hx Liver Disease: No Hx Genitourinary Disorders: No Hx Sexually Transmitted Disorders: No Hx Renal Disease (ESRD): No Hx Thyroid Disease: No Hx Human Immunodeficiency Virus (HIV): No (last 2017 negative) Hx Hepatitis C: No Hx Depression: No Hx Suicide Attempt: No Hx Bipolar Disorder: No Hx Schizophrenia: No - Patient Surgical History Past Surgical History: Yes Hx Neurologic Surgery: No Hx Cataract Extraction: No Hx Cardiac Surgery: No Hx Lung Surgery: No Hx Breast Surgery: No Hx Breast Biopsy: No Hx Abdominal Surgery: No Hx Appendectomy: No Hx Cholecystectomy: No Hx Genitourinary Surgery: No Hx Section: No Hx Orthopedic Surgery: No Other Surgical History: s/p tonsillectomy DURING CHILDHOOD Anesthesia Reaction: No - PPD History Previous Implant?: Yes Documented Results: Positive w/o proof Implanted On Prior [facility] Admission?: Yes Date: 09/03/15 Results: 15mm PPD to be Administered?: No - Smoking Cessation Smoking history: Current every day smoker Have you smoked in the past 12 months: Yes Aproximately how many cigarettes per day: 40 Cigars Per Day: 0 Hx Chewing Tobacco Use: No Initiated information on smoking cessation: Yes 'Breaking Loose' booklet given: 05/16/19 - Substance & Tx. History Hx Alcohol Use: Yes ( 1 beer/mth) Hx Substance Use: Yes Substance Use Type: Heroin, Opiates, Tranquilizers (Xanas) Hx Substance Use Treatment: Yes (detox, rehab) - Substances abused Heroin Other (specify): SNIFF Frequency: Daily Amount used: 2 GRAM Age of first use: 28 Date of last use: 05/11/19 Alprazolam (Xanax) Substance route: Oral Frequency: Daily Amount used: 6 MG Age of first use: 28 Date of last use: 05/11/19 Family Disease History - Family Disease History Family Disease History: Heart Disease: Mother (, heart disease ), Other: Father (alive, no health problems ), Mother Admission Physical Exam S - Vital Signs Vital Signs: Vital Signs - 24 hr 05/16/19 17:09 Temperature 97.1 F L Pulse Rate 71 Respiratory 18 Rate Blood Pressure 105/66 - Physical General Appearance: Yes: Mild Distress, Thin, Tremorous (Tremors of hands at rest), Anxious HEENTM: Yes: EOMI, Hearing grossly Normal, Normocephalic, Normal Voice, KAILYN ( Pupils = 4 mm), Pharynx Normal Respiratory: Yes: Lungs Clear, Normal Breath Sounds, No Respiratory Distress Neck: Yes: No masses,lesions,Nodules, Supple Breast: Yes: Breast Exam Deferred Cardiology: Yes: Regular Rhythm, Regular Rate, S1, S2 Abdominal: Yes: Flat, Soft, Increased Bowel Sounds Genitourinary: Yes: Burning Back: Yes: Normal Inspection Musculoskeletal: Yes: full range of Motion, Gait Steady Extremities: Yes: Tremors (Tremors of hands at rest) 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: Yes: 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 intact, Fully Oriented, Motor Strength 5/5 Integumentary: Yes: Normal Color, Warm Lymphatic: Yes: Within Normal Limits - Diagnostic (1) Severe heroin dependence in early remission Current Visit: Yes Status: Acute (2) Sedative, hypnotic or anxiolytic use disorder, moderate, in early remission , dependence Current Visit: Yes Status: Acute (3) History of positive PPD Current Visit: Yes Status: Chronic Comment: r/t immunization as a child (4) Insomnia Current Visit: Yes Status: Chronic Qualifiers: Insomnia type: unspecified Qualified Code(s): G47.00 - Insomnia, unspecified (5) Nicotine dependence Current Visit: Yes Status: Chronic Qualifiers: Nicotine product type: cigarettes Substance use status: uncomplicated Qualified Code(s): F17.210 - Nicotine dependence, cigarettes, uncomplicated Cleared for Admission [facility] - Detox or Rehab Claeared for Rehab Admission: Yes Inpatient Rehab Admission - Rehab Decision to Admit Inpatient rehab admission?: Yes - Initial Determination Are CD services needed?: Yes Free of communicable disease: Yes Not in need of hospitalization: Yes - Rehab Admission Criteria Previous failed treatment: Yes Poor recovery environment: Yes Comorbidities: No Lacks judgement: No Patient is meeting Inpatient Rehab admission criteria:: Yes"
[2019-05-16] MEDS ORDERED: MAGNESIUM HYDROX 2400MG/30ML ORAL SUSPENSION 30 ML CUP PO PRN (19:04)
[2019-05-16] MEDS ORDERED: P-EPHED 60MG/TRIPROLIDI 2.5MG TABLET PO PRN (19:04)
[2019-05-16] MEDS ORDERED: MAGNESIUM CITRATE 300 ML BOTTLE PO PRN (19:04)
[2019-05-16] MEDS ORDERED: guaiFENesin 200 MG/10 ML 10 ML UNIT-DOSE CUPS PO PRN (19:04)
[2019-05-16] MEDS ORDERED: LOPERAMIDE HCL 2 MG CAPSULE PO PRN (19:04)
[2019-05-16] MEDS ORDERED: MENTHOL/PHENOL 1 EACH UD MM PRN (19:04)
[2019-05-16] MEDS ORDERED: ACETAMINOPHEN 325 MG TABLET (FP) PO PRN (19:04)
[2019-05-16] MEDS ORDERED: MAG HYDROX/AL HYDROX/SIMETH 30 ML UNIT-DOSE CUP PO PRN (19:04)
[2019-05-16] MEDS: THIAMINE HCL 100 MG TABLET (FP) PO SCH (21:32)
[2019-05-16] MEDS: NICOTINE POLACRILEX 2 MG GUM BUC PRN (21:32)
[2019-05-16] MEDS ORDERED: MELATONIN 5 MG TABLETS PO PRN (22:00)
[2019-05-16] MEDS ORDERED: traZODone HCL 50 MG TABLET (FP) PO SCH (22:00)
[2019-05-17] MEDS: IBUPROFEN 400 MG TABLET (FP) PO PRN (05:56)
[2019-05-17] MEDS: NICOTINE POLACRILEX 2 MG GUM BUC PRN ×2 (05:58→10:18)
--- NOTE | 2019-05-17 09:13 | CONSULT ---
[facility] Psychiatric Consult - Data Date of interview: 05/17/19 Admission source: [facility] Identifying data: Patient is a 33 year old single male, without children, unemployed, domiciled, and is financially supported by family. This is one of multiple admissions to rehab. Patient admitted to rehab for opiate and benzodiazepine dependence. Substance Abuse History: Smoking Cessation. Smoking history: Current every day smoker. Have you smoked in the past 12 months: Yes. Aproximately how many cigarettes per day: 40. Cigars Per Day: 0. Hx Chewing Tobacco Use: No. Initiated information on smoking cessation: Yes. 'Breaking Loose' booklet given : 05/16/19. - Substance & Tx. History. Hx Alcohol Use: Yes ( 1 beer/mth). Hx Substance Use: Yes. Substance Use Type: Heroin, Opiates, Tranquilizers (Xanas) . Hx Substance Use Treatment: Yes (detox, rehab). - Substances abused. Heroin. Other (specify): SNIFF. Frequency: Daily. Amount used: 2 GRAM. Age of first use: 28. Date of last use: 05/11/19. Alprazolam (Xanax). Substance route: Oral. Frequency: Daily. Amount used: 6 MG. Age of first use : 28. Date of last use: 05/11/19 Medical History: Hx + PPD. Psychiatric History: Patient denies h/o psychiatric hospitalization, outpatient care and suicide attempt. States his only psychiatric contact have occured at detox/rehab settings. Reports past history of accepting trazodone 150mg for insomnia. At present patient is experencing difficulty sleeping. Physical/Sexual Abuse/Trauma History: denies. Mental Status Exam - Mental Status Exam Alert and Oriented to: Time, Place, Person Cognitive Function: Good Patient Appearance: Well Groomed Mood: Euthymic Affect: Appropriate Patient Behavior: Appropriate, Cooperative Speech Pattern: Appropriate Voice Loudness: Mildly Soft/Quiet Thought Process: Goal Oriented Thought Disorder: Not Present Hallucinations: Denies Suicidal Ideation: Denies Homicidal Ideation: Denies Insight/Judgement: Poor Sleep: Poorly Appetite: Fair Muscle strength/Tone: Normal Gait/Station: Normal Psychiatric Findings - Problem List ([place] 1, 2,3) (1) Opiate dependence Current Visit: Yes Status: Acute (2) Substance-induced sleep disorder Current Visit: Yes Status: Acute (3) Sedative hypnotic or anxiolytic dependence Current Visit: Yes Status: Acute - Initial Treatment Plan Initial Treatment Plan: Psychoeducation provided. Rehab in progress. Will order Trazodone 150mg HS. Benefits and sdie effects discussed. Verbal consent given.
[2019-05-17] MEDS: PRENATAL VITAMINS W/ FOLIC ACID TABLET (FP) PO SCH (10:17)
[2019-05-17] MEDS: METHOCARBAMOL 500 MG TABLET PO SCH ×2 (14:23→21:26)
[2019-05-17 15:11] LABS: HEMATOCRIT 41.6 % (35.4-49); HEMOGLOBIN 14.1 GM/dL (11.7-16.9); MCHC 33.9 g/dl (32.0-35.9); MEAN CELL VOLUME 88.7 fl (80-96); MEAN PLT VOLUME 7.8 fl (7.5-11.1); PLATELET COUNT 213 K/MM3 (134-434); RBC 4.69 M/mm3 (4.00-5.60); RDW 13.4 % (11.9-15.9); WHITE BLOOD COUNT 6.7 K/mm3 (4.0-10.0)
[2019-05-17 15:31] LABS: BILIRUBIN,TOTAL 0.7 mg/dL (0.2-1); BLOOD UREA NITROGEN 13.7 mg/dL (7-18); CREATININE 1.1 mg/dL (0.55-1.3); POTASSIUM 3.9 mmol/L (3.5-5.1); TOT PROT 6.9 g/dl (6.4-8.2)
[2019-05-17] MEDS: hydrOXYzine PAMOATE 50 MG CAPSULE (FP) PO PRN (18:06)
[2019-05-17] MEDS: THIAMINE HCL 100 MG TABLET (FP) PO SCH (21:26)
[2019-05-17] MEDS: traZODone HCL 50 MG TABLET (FP) PO SCH (21:27)
[2019-05-18] MEDS: METHOCARBAMOL 500 MG TABLET PO SCH ×3 (06:39→21:16)
[2019-05-18] MEDS: PRENATAL VITAMINS W/ FOLIC ACID TABLET (FP) PO SCH (10:07)
[2019-05-18 12:06] LABS: PH,URINE 6.5 (5.0-8.0); URINE APPEARANCE CLEAR; URINE BILIRUBIN NEGATIVE (NEGATIVE); URINE COLOR YELLOW; URINE GLUCOSE (UA) NEGATIVE (NEGATIVE); URINE KETONE TRACE (NEGATIVE); URINE LEUK ESTERASE NEGATIVE (NEGATIVE); URINE NITRITE NEGATIVE (NEGATIVE); URINE PROTEIN NEGATIVE (NEGATIVE); URINE UROBILINOGEN 0.2 mg/dL (0.2-1.0)
--- NOTE | 2019-05-18 16:37 | PN ---
BHS COWS - Scale Resting Pulse: 0= [place] 80 or Below Sweatin=Flushed/Facial Moisture Restless Observation: 1= Difficult to Sit Still Pupil Size: 2= Moderately Dilated Bone or Joint Aches: 1= Mild Discomfort Runny Nose/ Eye Tearin= None GI Upset > 30mins: 1= Stomach Cramp Tremor Observation of Outstretched Hands: 0= None Yawning Observation: 0= None Anxiety or Irritability: 2=Irritable/Anxious Goose Flesh Skin: 0=Smooth Skin COWS Score: 9 BHS Progress Note (SOAP) Subjective: PATIENT SEEN FOR C/O WITHDRAWAL SYMPTOMS OF OPIOD CRAVINGS, ANXIETY, CHILLS, SWEATING AND STOMACH CRAMPS. PATIENT HAS HX OF HERION/XANAX DEPENDENCE. DETOXED AT [facility] AND ADMITTED TO [facility] ON 05/16/19 FOR REHAB. PATIENT STATES HIS GOAL IS TO BE OFF ALL SUBSTANCES BUT NEEDS HELP WITH WITHDRAWAL SYMPTOMS. ISTOP REVIEWED UPON ADMISSION AND NEGATIVE 05/16/19. Objective: 05/18/19 16:34 Vital Signs Temperature 98.0 F 05/18/19 06:35 Pulse Rate 69 05/18/19 06:35 Respiratory Rate 16 05/18/19 06:35 Blood Pressure 105/68 05/18/19 06:35 O2 Sat by Pulse Oximetry (%) Laboratory Tests 05/17/19 05/17/19 05/17/19 08:35 08:35 08:35 WBC 6.7 RBC 4.69 Hgb 14.1 Hct 41.6 MCV 88.7 MCH 30.0 MCHC 33.9 RDW 13.4 Plt Count 213 MPV 7.8 Sodium 139 Potassium 3.9 Chloride 104 Carbon Dioxide 29 Anion Gap 5 L BUN 13.7 Creatinine 1.1 Est GFR (CKD-EPI)AfAm 102.40 Est GFR (CKD-EPI)NonAf 88.36 Random Glucose 90 Calcium 9.0 Total Bilirubin 0.7 AST 9 L ALT 13 Alkaline Phosphatase 43 L Total Protein 6.9 Albumin 4.0 Urine Color Urine Appearance Urine pH Ur Specific Kayenta Urine Protein Urine Glucose (UA) Urine Ketones Urine Blood Urine Nitrite Urine Bilirubin Urine Urobilinogen Ur Leukocyte Esterase RPR Titer Nonreactive 05/18/19 11:00 WBC RBC Hgb Hct MCV MCH MCHC RDW Plt Count MPV Sodium Potassium Chloride Carbon Dioxide Anion Gap BUN Creatinine Est GFR (CKD-EPI)AfAm Est GFR (CKD-EPI)NonAf Random Glucose Calcium Total Bilirubin AST ALT Alkaline Phosphatase Total Protein Albumin Urine Color Yellow Urine Appearance Clear Urine pH 6.5 D Ur Specific Kayenta 1.017 Urine Protein Negative Urine Glucose (UA) Negative Urine Ketones Trace H Urine Blood Negative Urine Nitrite Negative Urine Bilirubin Negative Urine Urobilinogen 0.2 Ur Leukocyte Esterase Negative RPR Titer PE: ALERT AND ORIENTED X 3 SKIN WARM, + BEADS OF SWEAT OF FOREHEAD +PERRLA EOMS INTACT, BL, PUPILS MILDLY DILATED EXT NO VISIBLE TREMORS ANXIOUS/ +RESTLESSNESS Assessment: 05/18/19 16:37 A/P: PROTRACTED WITHDRAWAL Plan: PATIENT REFUSED CONNECTION TO OUTPLACEMENT CONSULTANT SUBOXONE MAT HOWEVER, WILL TREAT WITH SUBOXONE 2MG SL DAILY PRN X 72 HRS- FIRST DOSE NOW FOR WITHDRAWAL SYMPTOMS CONTINUE MOTRIN PRN CLONIDINE NOT ORDERED DUE TO LOW BP CONTINUE TO MONITOR CLINICALLY 05/18/19 16:38
[2019-05-18] MEDS ORDERED: BUPRENORPHINE/NALOXONE 2 MG/0.5 MG FILM PACKET SL ONE (16:45)
[2019-05-18] MEDS: hydrOXYzine PAMOATE 50 MG CAPSULE (FP) PO PRN (17:57)
[2019-05-18] MEDS: IBUPROFEN 400 MG TABLET (FP) PO PRN (17:57)
[2019-05-18] MEDS: NICOTINE POLACRILEX 2 MG GUM BUC PRN ×2 (17:58→21:17)
[2019-05-18] MEDS: traZODone HCL 50 MG TABLET (FP) PO SCH (21:16)
[2019-05-18] MEDS: THIAMINE HCL 100 MG TABLET (FP) PO SCH (21:16)
[2019-05-19] MEDS: METHOCARBAMOL 500 MG TABLET PO SCH ×2 (06:38→14:17)
[2019-05-19 06:48] VITALS: BP 90/61; PULSE 64; TEMP 97.9
[2019-05-19] MEDS: PRENATAL VITAMINS W/ FOLIC ACID TABLET (FP) PO SCH (09:26)
[2019-05-19] MEDS: hydrOXYzine PAMOATE 50 MG CAPSULE (FP) PO PRN ×2 (09:26→14:16)
[2019-05-19] MEDS ORDERED: BUPRENORPHINE/NALOXONE 2 MG/0.5 MG FILM PACKET SL PRN (10:00)
[2019-05-19] MEDS: NICOTINE POLACRILEX 2 MG GUM BUC PRN (14:18)
[2019-05-19] MEDS ORDERED: ONDANSETRON *ODT* 4 MG TABLET SL PRN (14:21)
[2019-05-19] MEDS ORDERED: CYCLOBENZAPRINE HCL 10 MG TABLET (FP) PO PRN (14:23)
--- NOTE | 2019-05-19 15:55 | PN ---
S Progress Note (SOAP) Subjective: PT DECLINED TO CONTINUE WITH REHAB AND REFUSED TO WAIT FOR PROVIDER OR THE COUNSELOR TO SEE HIM STATING "I DON'T WANT TO SEE ANYBODY". Objective: 05/19/19 15:53 Vital Signs - 24 hr 05/19/19 05/19/19 05/19/19 00:30 03:30 06:47 Temperature 97.9 F Pulse Rate 64 Respiratory 18 18 16 Rate Blood Pressure 90/61 Assessment: 05/19/19 15:53 NAD Plan: PT SIGNED OUT AMA. PT WAS REFERRED TO [facility] FOR CD AFTERCARE FOR FOLLOW UP.
== END 2019-05-19 15:20 | disposition left against medical advice (07) | DRG 770 ==
LOC: YASAS 13:35 → Y5N 19:18
PROVIDERS: ADMIT Neuromusculoskeletal Medicine & OMM; ATTEND Neuromusculoskeletal Medicine & OMM
PROC: HZ42ZZZ Group Counseling for Substance Abuse Treatment, Cognitive-Behavioral (ICD-10-PCS; principal; 2019-05-16)
DX: F11.20 Opioid dependence, uncomplicated (principal); F13.20 Sedative, hypnotic or anxiolytic dependence, uncomplicated; F17.210 Nicotine dependence, cigarettes, uncomplicated; F19.282 Other psychoactive substance dependence with psychoactive substance-induced sleep disorder; G47.00 Insomnia, unspecified; R76.11 Nonspecific reaction to tuberculin skin test without active tuberculosis
CPT/HCPCS: 36415; 80053; 81003; 85027; 86593

== ENCOUNTER 2020-08-31 13:13 | Inpatient (IN) | payer OTHER ==
--- OUTSIDE RECORDS SUMMARY | 2020-08-31 13:18 | XMS ---
:1985 Author Organization [facility] Support Name Relationship Address Phone GURMEET BERRIOS FRIEND [address] [place], [place] ELAINE HENRY FRIEND [address] [phone] [place] [address] UE Unavailable Unavailable Unavailable RONEY GILLILAND FRIEND [address] [place] [address] ELAINE HENRY Other [address] [place] [address] Re-disclosure Warning The records that you are about to access may contain information from federally- assisted alcohol or drug abuse programs. If such information is present, then the following federally mandated warning applies: This information has been disclosed to you from records protected by federal confidentiality rules (42 CFR part 2). The federal rules prohibit you from making any further disclosure of this information unless further disclosure is expressly permitted by the written consent of the person to whom it pertains or as otherwise permitted by 42 CFR part 2. A general authorization for the release of medical or other information is NOT sufficient for this purpose. The Federal rules restrict any use of the information to criminally investigate or prosecute any alcohol or drug abuse patient.The records that you are about to access may contain highly sensitive health information, the redisclosure of which is protected by Article 27-F of the [facility] Public Health law. If you continue you may haveaccess to information: Regarding HIV / AIDS; Provided by facilities licensed or operated by the [facility] Office of Mental Health; or Provided by the [facility] Office for People With Developmental Disabilities. If such information is present, then the following [facility] mandated warning applies: This information has been disclosed to you from confidential records which are protected by state law. State law prohibits you from making any further disclosure of this information without the specific written consent of the person to whom it pertains, or as otherwise permitted by law. Any unauthorized further disclosure in violation of state law may result in a fine or skilled nursing sentence or both. A general authorization for the release of medical or other information is NOT sufficient authorization for further disclosure. Insurance Providers Payer name Policy type Policy ID Covered Covered democrat's Policy P rimma / Coverage democrat ID relationship to Lynne Inf ormation type lynne UN [id number] SP [id number] MEDICAID COMM PLAN [place] [id number] SP [id number] MEDICAID COMM PLAN MEDICAID [id number] SP [id number] Results ID Date Data Source [id number] 06/28/2020 12:00:00 AM EDT [facility] Name Value Range Interpretation Description Data Sup porting Code Source(s) Document(s ) SARS [facility] coronavirus 2 RNA This lab was ordered by [facility] Yuriy Christian and reported by [facility]. ID Date Data Source [id number] 04/22/2020 12:00:00 AM EDT [facility] Name Value Range Interpretation Code Description Data Rina rce(s) Supporting Document(s ) SARS-CoV-2 [facility] RNA Resp Ql COCO+probe This lab was ordered by [facility] and reported by [facility]. ID Date Data Source [id number] 03/23/2020 11:42:00 AM EDT [facility] Name Value Range Interpretation Code Description Data Rina rce(s) Supporting Document(s ) SARS-CoV-2 [facility] RNA Resp Ql COCO+probe This lab was ordered by [facility] a nd reported by [facility]. Procedure
--- NOTE | 2020-08-31 13:37 | BHS.RME ---
2019 N Coronavirus Screen - COVID-19 Screening Questions Dx of COVID-19 or had a positive test in the last 4 weeks?: No Contact with known/suspected COVID patient in last 14 days?: No Any of these symptoms or contact with someone who has?: None Traveled domestically/internationally in the last 14 days?: No Screen score: 0 Screen result: Further Evaluation Substance Use & Tx History - Substance Use History Heroin Substance amount: 2 bundles Frequency of use: Daily Substance route: Inhalation (ex: sniffing or snorting) Date of Last Use: 08/31/20 (started age 27) Cocaine-Crack Substance amount: $60 Frequency of use: Daily Substance route: Smoking Date of Last Use: 08/27/20 (started age 27) Nicotine Substance amount: 2 packs Frequency of use: Daily Substance route: Smoking Date of Last Use: 08/31/20 (started age 15) Physical/Psych/Mental Status - Behavior General Behavior: Increased activity (restlessness, agitation) Eye Contact: Normal - Cooperativeness Cooperativeness: Cooperative - Thinking Thought Processes: Tight, Logical, Goal Directed - Physical Health Problems Is patient presently having any pain?: No Does patient presently have any injuries (include location): No Does patient currently have a fever: No Is patient : No COWS - Scale Resting Pulse: 0= [place] 80 or Below Sweatin= Chills/Flushing Restless Observation: 3= Extraneous Movement Pupil Size: 1= Pupils >than Normal Bone or Joint Aches: 1= Mild Discomfort Runny Nose/ Eye Tearin= Runny Nose/Eyes GI Upset > 30mins: 1= Stomach Cramp Tremor Observation: 2= Slight Tremor Visible Yawning Observation: 1= 1-2x During Session Anxiety or Irritability: 1=Feels Anxious/Irritable Goose Flesh Skin: 0=Smooth Skin COWS Score: 13
--- NOTE | 2020-08-31 16:18 | HP ---
"COWS - Scale Resting Pulse: 0= [place] 80 or Below Sweatin=Flushed/Facial Moisture Restless Observation: 3= Extraneous Movement Pupil Size: 1= Pupils >than Normal (Pupils = 3 mm) Bone or Joint Aches: 1= Mild Discomfort Runny Nose/ Eye Tearin= Runny Nose/Eyes GI Upset > 30mins: 0= None Tremor Observation: 2= Slight Tremor Visible Yawning Observation: 0= None Anxiety or Irritability: 1=Feels Anxious/Irritable Goose Flesh Skin: 0=Smooth Skin COWS Score: 12 CIWA Score - Admission Criteria OASAS Guidelines: Admission for Medically Managed Detox: Requires at least one of the followin. CIWA greater than 12 2. Seizures within the past 24 hours 3. Delirium tremens within the past 24 hours 4. Hallucinations within the past 24 hours 5. Acute intervention needed for co occurring medical disorder 6. Acute intervention needed for co occurring psychiatric disorder 7. Severe withdrawal that cannot be handled at a lower level of care (continued vomiting, continued diarrhea, abnormal vital signs) requiring intravenous medication and/or fluids 8. Admitting History and Physical - Smoking History Smoking history: Current every day smoker Have you smoked in the past 12 months: Yes Aproximately how many cigarettes per day: 80 - Alcohol/Substance Use Hx Alcohol Use: Yes ( 1 beer/mth) Admission [facility] Chief Complaint: Here to stop heroin because it's affecting my health. Allergies/Adverse Reactions: Allergies Allergy/AdvReac Type Severity Reaction Status Date / Time No Known Allergies Allergy Verified 08/31/20 18:01 History of Present Illness: 35 yo presents w/ symptoms opioid withdrawal seeking detox. U-tox + FEN, BOB, MTD JOSE = 0.0 DENIES SEIZURES OR OVERDOSES. BLACKOUTS 1-2 X. LAST 6 MTHS AGO. Heroin use since 27. Recent use abou2 15 bags daily - nasal. Has a Narcan kit. Methadone -states purchases from streets. (50-100mg). States last used 3 days ago. States uses Xanax but none in urine use began at age [age]. Was up to 2-4 mg/day. States last used 4 days ago. Cocaine use since age 27. $60/day. Nicotine use since age 15. Smokes 2 PPD. Alcohol - denies. PMHx: Denies significant PMH; Intermittent sharp pain (R) finger. Hx TB immunization as a child. + PPD. Last CXR: 03/2020 MHHx: Depression - r/t withdrawal symptoms. Denies thoughts of harming self or others. SHx: Domiciled. Unemployed. Denies legal. Search Terms: Anali Fofana, 1985 Search Date: 08/31/2020 17:06:44 PM The Drug Utilization Report below displays all of the controlled substance prescriptions, if any, that your patient has filled in the last twelve months. The information displayed on this report is compiled from pharmacy submissions to the Department, and accurately reflects the information as submitted by the pharmacies. This report was requested by: Gabriela Aparicio | Reference #: [id number] There are no results for the search terms that you entered. Exam Limitations: No Limitations - Ebola screening Have you traveled outside of the country in the last 21 days: No (Denies COVID exposure) Have you had contact with anyone from an Ebola affected area: No Have you been sick,other than usual withdrawal symptoms: No Do you have a fever: No - Review of Systems Constitutional: Chills, Diaphoresis, Changes in sleep (Difficulty falling and staying asleep.), Unintentional Wgt. Loss EENT: reports: Nose Congestion Respiratory: reports: Shortness of Breath (r/t withdrawal) Cardiac: reports: No Symptoms Reported GI: reports: No Symptoms Reported : reports: No Symptoms Reported Musculoskeletal: reports: Back Pain (r/t withdrawal), Other (Intermittent sharp pain (R) finger.) Integumentary: reports: No Symptoms Reported Neuro: reports: Tremors Endocrine: reports: Increased Thirst Hematology: reports: No Symptoms Reported Psychiatric: reports: Judgement Intact, Orientated x3, Agitated, Anxious, Depressed (r/t withdrawals) Patient History - Patient Medical History Hx Anemia: No Hx Asthma: No Hx Chronic Obstructive Pulmonary Disease (COPD): No Hx Cancer: No Hx Cardiac Disorders: No Hx Congestive Heart Failure: No Hx Hypertension: No Hx Hypercholesterolemia: No Hx Pacemaker: No HX Cerebrovascular Accident: No Hx Seizures: No Hx Dementia: No Hx Diabetes: No Hx Gastrointestinal Disorders: No Hx Liver Disease: No Hx Genitourinary Disorders: No Hx Sexually Transmitted Disorders: No Hx Renal Disease (ESRD): No Hx Thyroid Disease: No Hx Human Immunodeficiency Virus (HIV): No (last 2017 negative) Hx Hepatitis C: No Hx Depression: No Hx Suicide Attempt: No Hx Bipolar Disorder: No Hx Schizophrenia: No - Patient Surgical History Past Surgical History: Yes Hx Neurologic Surgery: No Hx Cataract Extraction: No Hx Cardiac Surgery: No Hx Lung Surgery: No Hx Breast Surgery: No Hx Breast Biopsy: No Hx Abdominal Surgery: No Hx Appendectomy: No Hx Cholecystectomy: No Hx Genitourinary Surgery: No Hx Section: No Hx Orthopedic Surgery: No Other Surgical History: s/p tonsillectomy DURING CHILDHOOD Anesthesia Reaction: No - PPD History Previous Implant?: Yes Documented Results: Positive w/proof Implanted On Prior [facility] Admission?: No Date: 09/03/15 Results: 15mm PPD to be Administered?: No - Smoking Cessation Smoking history: Current every day smoker Have you smoked in the past 12 months: Yes Aproximately how many cigarettes per day: 40 Cigars Per Day: 0 Hx Chewing Tobacco Use: No Initiated information on smoking cessation: Yes 'Breaking Loose' booklet given: 08/31/20 - Substance & Tx. History Hx Alcohol Use: No Hx Substance Use: Yes Substance Use Type: Cocaine, Heroin, Opiates, Tranquilizers (Benzo's) Hx Substance Use Treatment: Yes (detox, rehab, past MMTP) Admission Physical Exam [facility] - Physical General Appearance: Yes: Nourished, Mild Distress, Tremorous, Sweating (Increased facial moisture), Anxious HEENTM: Yes: EOMI, Hearing grossly Normal, Normocephalic, Normal Voice, KAILYN (Pupils = 3 mm), Pharynx Normal, Nasal Congestion, Rhinorrhea Respiratory: Yes: Lungs Clear, Normal Breath Sounds, No Respiratory Distress Neck: Yes: No masses,lesions,Nodules, Supple Breast: Yes: Breast Exam Deferred Cardiology: Yes: Regular Rhythm, Regular Rate, S1, S2 Abdominal: Yes: Non Tender, Flat, Soft, Increased Bowel Sounds Genitourinary: Yes: Within Normal Limits Back: Yes: Normal Inspection Musculoskeletal: Yes: full range of Motion, Gait Steady, Other ((R) hand/pinky w/ FROM, no edema) Extremities: Yes: Normal Capillary Refill, Tremors 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, Fully Oriented, Alert, Motor Strength 5/5, Normal Mood/Affect Integumentary: Yes: Normal Color, Warm, Moist (Increased facial moisture) Lymphatic: Yes: Within Normal Limits - Diagnostic (1) Opioid dependence with withdrawal Current Visit: Yes Status: Acute (2) Sedative, hypnotic or anxiolytic use disorder, moderate, in early remission, dependence Current Visit: Yes Status: Acute (3) Cocaine dependence, uncomplicated Current Visit: Yes Status: Chronic (4) History of positive PPD Current Visit: Yes Status: Chronic Comment: r/t immunization as a child (5) Nicotine dependence Current Visit: Yes Status: Chronic Qualifiers: Nicotine product type: cigarettes Substance use status: uncomplicated Qualified Code(s): F17.210 - Nicotine dependence, cigarettes, uncomplicated Cleared for Admission S - Detox or Rehab S Level of Care: Medically Managed Detox Regimen/Protocol: Methadone Claeared for Rehab Admission: No Breathalyzer - Breathalyzer Breathalyzer: 0 Urine Drug Screen - Test Device Lot number: [id number] Expiration date: 06/19/22 - Control Is test valid?: Yes - Results Drug screen NEGATIVE: No Urine drug screen results: BOB-Cocaine, FEN-Fentanyl, MOP-Opiates Inpatient Rehab Admission - Rehab Decision to Admit Inpatient rehab admission?: No"
[2020-08-31 16:47] VITALS: BMI 22.1
[2020-08-31] MEDS ORDERED: MAGNESIUM CITRATE 300 ML BOTTLE PO PRN (17:14)
[2020-08-31] MEDS ORDERED: MAGNESIUM HYDROX 2400MG/30ML ORAL SUSPENSION 30 ML CUP PO PRN (17:14)
[2020-08-31] MEDS ORDERED: BISMUTH SUBSALICYLATE 524 MG/30 ML UD PO PRN (17:14)
[2020-08-31] MEDS ORDERED: MAG HYDROX/AL HYDROX/SIMETH 30 ML UNIT-DOSE CUP PO PRN (17:14)
[2020-08-31] MEDS ORDERED: ACETAMINOPHEN 325 MG TABLET (FP) PO PRN ×2 (17:14)
[2020-08-31] MEDS ORDERED: MENTHOL/PHENOL 1 EACH UD MM PRN (17:14)
[2020-08-31] MEDS ORDERED: METHADONE HCL 10 MG TABLET (FOR DETOX USE ONLY) PO ONE (17:14)
[2020-08-31] MEDS ORDERED: ONDANSETRON *ODT* 4 MG TABLET SL PRN (17:14)
[2020-08-31] MEDS ORDERED: IBUPROFEN 400 MG TABLET (FP) PO PRN (17:14)
[2020-08-31] MEDS ORDERED: cloNIDine HCL 0.1 MG TABLET PO PRN (17:14)
--- OUTSIDE RECORDS SUMMARY | 2020-08-31 18:05 | XMS ---
:[address] [facility] Support Name Relationship Address Phone GURMEET BERRIOS FRIEND [address] [place], [place] ELAINE HENRY FRIEND [address] [phone] [place] [address] UE Unavailable Unavailable Unavailable RONEY GILLILAND FRIEND [address] [place] [address] ELAINE HENRY Other [address] [place] [address] Re-disclosure Warning The records that you are [...] is protected by Article 27-F of the [facility] Public Health law. If you continue you may haveaccess to information: Regarding HIV / AIDS; Provided by facilities licensed or operated by the [facility] Office of Mental Health; or Provided by the [facility] Office for People With Developmental Disabilities. If such information is present, then the following [facility] mandated warning applies: This information has [...] law may result in a fine or mcc sentence or both. A general authorization for the release of medical or other information is NOT sufficient authorization for further disclosure. Insurance Providers Payer name Policy type Policy ID Covered Covered libertarian's Policy P rimma / Coverage libertarian ID relationship to Lynne Inf ormation type lynne UN [id number] SP [id number] MEDICAID COMM PLAN [place] [id number] SP [id number] MEDICAID COMM PLAN MEDICAID [id number] SP [id number] Results ID Date Data Source [id number] 06/28/2020 12:00:00 AM EDT [facility] Name Value Range Interpretation Description Data Sup porting Code Source(s) Document(s ) SARS [facility] coronavirus 2 RNA This lab was ordered by [facility] Yuriy Christian and reported by [facility]. ID Date Data Source [id number] 04/22/2020 12:00:00 AM EDT [facility] Name Value Range Interpretation Code Description Data Rina rce(s) Supporting Document(s ) SARS-CoV-2 [facility] RNA Resp Ql COCO+probe This lab was ordered by [facility] and reported by [facility] Public Health Lab. ID Date Data Source [id number] 03/23/2020 11:42:00 AM EDT [facility] Name Value Range Interpretation Code Description Data Rina rce(s) Supporting Document(s ) SARS-CoV-2 [facility] RNA Resp Ql COCO+probe This lab was ordered by [facility] a nd reported by [facility]. Procedure
[2020-08-31] MEDS: diazePAM 5 MG TABLET PO PRN (19:04)
[2020-08-31] MEDS: NICOTINE POLACRILEX 4 MG GUM BUC PRN ×3 (19:05→23:07)
[2020-08-31] MEDS: MELATONIN 5 MG TABLETS PO SCH (23:07)
[2020-08-31] MEDS: THIAMINE HCL 100 MG TABLET (FP) PO SCH (23:10)
[2020-09-01] MEDS ORDERED: MASKS NR ONE (03:08)
[2020-09-01] MEDS: diazePAM 5 MG TABLET PO PRN ×4 (03:09→21:26)
[2020-09-01] MEDS: NICOTINE POLACRILEX 4 MG GUM BUC PRN ×4 (03:11→21:26)
[2020-09-01] MEDS ORDERED: METHADONE HCL 10 MG TABLET (FOR DETOX USE ONLY) ONE (09:01)
[2020-09-01] MEDS ORDERED: METHADONE HCL 5 MG TABLET (FOR DETOX USE ONLY) ONE (09:01)
[2020-09-01 09:05] LABS: HEMATOCRIT 39.8 % (35.4-49); MCH 31.2 pg (25.7-33.7); MCHC 35.3 g/dl (32.0-35.9); MEAN CELL VOLUME 88.5 fl (80-96); MEAN PLT VOLUME 8.1 fl (7.5-11.1); PLATELET COUNT 163 K/MM3 (134-434); RDW 12.9 % (11.9-15.9)
[2020-09-01 09:07] LABS: POTASSIUM 4.2 mmol/L (3.5-5.1)
[2020-09-01 09:17] LABS: ALBUMIN 3.4 g/dl (3.4-5.0); CALCIUM 8.7 mg/dL (8.5-10.1)
[2020-09-01 09:21] LABS: CREATININE 0.8 mg/dL (0.55-1.3)
[2020-09-01 09:22] LABS: BILIRUBIN,TOTAL 0.3 mg/dL (0.2-1); TOT PROT 6.2 g/dl (6.4-8.2)
[2020-09-01] MEDS ORDERED: METHADONE (DETOX) 20 MG, METHADONE (DETOX) 5 MG PO ONE (10:00)
[2020-09-01] MEDS: PRENATAL VITAMINS W/ FOLIC ACID TABLET (FP) PO SCH (10:17)
[2020-09-01] MEDS: NICOTINE 21 MG/24 HOURS TOPICAL PATCH TD SCH (10:17)
--- NOTE | 2020-09-01 10:50 | CONSULT ---
[facility] Psychiatric Consult - Data Date of interview: 09/01/20 Admission source: [facility] Identifying data: Patient is a 35 year old single male, without children, unemployed, and currently homeless. This is one of multiple admissions for patient. Patient admitted to for opiate and cocaine dependence. Substance Abuse History: Smoking Cessation. Smoking history: Current every day smoker. Have you smoked in the past 12 months: Yes. Aproximately how many cigarettes per day: 40. Cigars Per Day: 0. Hx Chewing Tobacco Use: No. Initiated information on smoking cessation: Yes. 'Breaking Loose' booklet given: 08/31/20. - Substance & Tx. History. Hx Alcohol Use: No. Hx Substance Use: Yes. Substance Use Type: Cocaine, Heroin, Opiates, Tranquilizers (Benzo's). Hx Substance Use Treatment: Yes (detox, rehab, past MMTP) Medical History: denies. Psychiatric History: Patient denies history of psychiatric hospitalization, outpatient psychiatric care, and suicide attempt. States that he has received trazodone 200mg or seroquel 50/100mg for insomnia when admitted to detox/ rehab facilities. At present patient reports poor sleep and is requesting seroquel for insomnia. Physical/Sexual Abuse/Trauma History: denies. Mental Status Exam - Mental Status Exam Alert and Oriented to: Time, Place, Person Cognitive Function: Good Patient Appearance: Well Groomed Mood: Withdrawn Affect: Mood Congruent Patient Behavior: Cooperative Speech Pattern: Appropriate Voice Loudness: Normal Thought Process: Intact, Goal Oriented Thought Disorder: Not Present Hallucinations: Denies Suicidal Ideation: Denies Homicidal Ideation: Denies Insight/Judgement: Poor Sleep: Poorly Appetite: Fair Muscle strength/Tone: Normal Gait/Station: Normal Psychiatric Findings - Problem List ([place] 1, 2,3) (1) Opioid dependence with withdrawal Current Visit: Yes Status: Acute (2) Sedative, hypnotic or anxiolytic use disorder, moderate, in early remission, dependence Current Visit: Yes Status: Acute (3) Cocaine dependence, uncomplicated Current Visit: Yes Status: Chronic (4) Nicotine dependence Current Visit: Yes Status: Chronic Qualifiers: Nicotine product type: cigarettes Substance use status: uncomplicated Qualified Code(s): F17.210 - Nicotine dependence, cigarettes, uncomplicated (5) Substance-induced sleep disorder Current Visit: Yes Status: Acute - Initial Treatment Plan Initial Treatment Plan: Psychoeducation provided. Detoxification in progress. Will order Seroquel 50mg HS. Benefits and side effects discussed. Verbal consent given.
--- NOTE | 2020-09-01 17:28 | PN ---
BHS COWS - Scale Resting Pulse: 0= [place] 80 or Below Sweatin= Chills/Flushing Restless Observation: 0= Sits Still Pupil Size: 0= Normal to Room Light Bone or Joint Aches: 2= Severe Diffuse Aches Runny Nose/ Eye Tearin= Nasal Congestion GI Upset > 30mins: 0= None Tremor Observation of Outstretched Hands: 0= None Yawning Observation: 1= 1-2x During Session Anxiety or Irritability: 2=Irritable/Anxious Goose Flesh Skin: 3=Piloerection COWS Score: 10 BHS Progress Note (SOAP) Subjective: Anxious, Sweating, Body Aches, Nasal Congestion. Objective: Patient A & O X 3, Observed Ambulating on Detox Unit Unassisted. In No Acute Distress. 09/01/20 17:26 Vital Signs Temperature 96.8 F L 09/01/20 16:45 Pulse Rate 64 09/01/20 16:45 Respiratory Rate 17 09/01/20 16:45 Blood Pressure 116/69 09/01/20 16:45 O2 Sat by Pulse Oximetry (%) 98 09/01/20 16:45 Laboratory Tests 09/01/20 09/01/20 09/01/20 07:05 07:05 07:05 WBC 7.0 RBC 4.50 Hgb 14.0 Hct 39.8 D MCV 88.5 MCH 31.2 MCHC 35.3 RDW 12.9 Plt Count 163 D MPV 8.1 Sodium 142 Potassium 4.2 Chloride 109 H Carbon Dioxide 30 Anion Gap 3 L BUN 14.0 Creatinine 0.8 Est GFR (CKD-EPI)AfAm 135.08 Est GFR (CKD-EPI)NonAf 116.55 Random Glucose 69 L Calcium 8.7 Total Bilirubin 0.3 AST 12 L ALT 14 Alkaline Phosphatase 53 Total Protein 6.2 L Albumin 3.4 Syphilis Serology Non-reactive Lab Results noted. Assessment: 09/01/20 17:27 WITHDRAWAL SYMPTOMS. Plan: Continue Detox. Increase Daily Oral Water Intake.
[2020-09-01] MEDS: QUEtiapine FUMARATE 50 MG TABLET PO SCH (21:26)
[2020-09-01] MEDS: THIAMINE HCL 100 MG TABLET (FP) PO SCH (21:26)
[2020-09-01] MEDS: MELATONIN 5 MG TABLETS PO SCH (23:24)
[2020-09-02] MEDS: diazePAM 5 MG TABLET PO PRN ×4 (02:24→20:29)
[2020-09-02] MEDS: NICOTINE POLACRILEX 4 MG GUM BUC PRN ×5 (02:26→19:17)
[2020-09-02] MEDS: NICOTINE 21 MG/24 HOURS TOPICAL PATCH TD SCH (09:58)
[2020-09-02] MEDS: PRENATAL VITAMINS W/ FOLIC ACID TABLET (FP) PO SCH (09:59)
[2020-09-02] MEDS ORDERED: METHADONE HCL 10 MG TABLET (FOR DETOX USE ONLY) PO ONE (10:00)
--- NOTE | 2020-09-02 11:40 | PN ---
[facility] COWS - Scale Resting Pulse: 0= [place] 80 or Below Sweatin= Chills/Flushing Restless Observation: 0= Sits Still Pupil Size: 0= Normal to Room Light Bone or Joint Aches: 2= Severe Diffuse Aches Runny Nose/ Eye Tearin= Nasal Congestion GI Upset > 30mins: 0= None Tremor Observation of Outstretched Hands: 2= Slight Tremor Visible Yawning Observation: 0= None Anxiety or Irritability: 2=Irritable/Anxious Goose Flesh Skin: 0=Smooth Skin COWS Score: 8 BHS Progress Note (SOAP) Subjective: Complaints of nasal congestion, tremors, anxiety, and bone aches. Objective: 09/02/20 11:39 Vital Signs 09/02/20 09/02/20 06:13 08:50 Temperature 97.1 F L 97.8 F Pulse Rate 59 L 88 Respiratory 20 18 Rate Blood Pressure 93/57 L 114/67 O2 Sat by Pulse 100 100 Oximetry (%) Laboratory Last Values WBC 7.0 K/mm3 (4.0-10.0) 09/01/20 07:05 RBC 4.50 M/mm3 (4.00-5.60) 09/01/20 07:05 Hgb 14.0 GM/dL (11.7-16.9) 09/01/20 07:05 Hct 39.8 % (35.4-49) D 09/01/20 07:05 MCV 88.5 fl (80-96) 09/01/20 07:05 MCH 31.2 pg (25.7-33.7) 09/01/20 07:05 MCHC 35.3 g/dl (32.0-35.9) 09/01/20 07:05 RDW 12.9 % (11.9-15.9) 09/01/20 07:05 Plt Count 163 K/MM3 (134-434) D 09/01/20 07:05 MPV 8.1 fl (7.5-11.1) 09/01/20 07:05 Sodium 142 mmol/L (136-145) 09/01/20 07:05 Potassium 4.2 mmol/L (3.5-5.1) 09/01/20 07:05 Chloride 109 mmol/L (98-107) H 09/01/20 07:05 Carbon Dioxide 30 mmol/L (21-32) 09/01/20 07:05 Anion Gap 3 MMOL/L (8-16) L 09/01/20 07:05 BUN 14.0 mg/dL (7-18) 09/01/20 07:05 Creatinine 0.8 mg/dL (0.55-1.3) 09/01/20 07:05 Est GFR (CKD-EPI)AfAm 135.08 09/01/20 07:05 Est GFR (CKD-EPI)NonAf 116.55 09/01/20 07:05 Random Glucose 69 mg/dL (74-106) L 09/01/20 07:05 Calcium 8.7 mg/dL (8.5-10.1) 09/01/20 07:05 Total Bilirubin 0.3 mg/dL (0.2-1) 09/01/20 07:05 AST 12 U/L (15-37) L 09/01/20 07:05 ALT 14 U/L (13-61) 09/01/20 07:05 Alkaline Phosphatase 53 U/L (45-117) 09/01/20 07:05 Total Protein 6.2 g/dl (6.4-8.2) L 09/01/20 07:05 Albumin 3.4 g/dl (3.4-5.0) 09/01/20 07:05 Syphilis Serology Non-reactive (NONREACTIVE) 09/01/20 07:05 COVID-19 ([facility]) Not detected (Not Detected) 08/31/20 18:20 Labs noted. Assessment: 09/02/20 11:39 Alert and oriented x3, in no acute respiratory distress. Full ROM, ambulating in unit without any assistance. Skin warm to touch without lesions. Withdrawal symptoms. Plan: Continue detox protocol.
[2020-09-02] MEDS: METHOCARBAMOL 500 MG TABLET PO PRN ×2 (17:03→22:33)
[2020-09-02] MEDS ORDERED: QUEtiapine FUMARATE 25 MG TABLET ONE (21:23)
[2020-09-02] MEDS: MELATONIN 5 MG TABLETS PO SCH (23:07)
[2020-09-02] MEDS: THIAMINE HCL 100 MG TABLET (FP) PO SCH (23:07)
[2020-09-02] MEDS: QUEtiapine FUMARATE 50 MG TABLET PO SCH (23:07)
[2020-09-03] MEDS: diazePAM 5 MG TABLET PO PRN ×2 (08:56→15:50)
[2020-09-03] MEDS: NICOTINE POLACRILEX 4 MG GUM BUC PRN ×4 (08:58→17:50)
[2020-09-03] MEDS ORDERED: METHADONE HCL 10 MG TABLET (FOR DETOX USE ONLY) ONE (09:30)
[2020-09-03] MEDS ORDERED: METHADONE HCL 5 MG TABLET (FOR DETOX USE ONLY) ONE (09:30)
[2020-09-03] MEDS ORDERED: METHADONE (DETOX) 10 MG, METHADONE (DETOX) 5 MG PO ONE (10:00)
--- NOTE | 2020-09-03 10:10 | PN ---
BHS COWS - Scale Resting Pulse: 0= [place] 80 or Below Sweatin= No chills or Flushing Restless Observation: 0= Sits Still Pupil Size: 1= Pupils >than Normal Bone or Joint Aches: 1= Mild Discomfort Runny Nose/ Eye Tearin= Nasal Congestion GI Upset > 30mins: 1= Stomach Cramp Tremor Observation of Outstretched Hands: 2= Slight Tremor Visible Yawning Observation: 1= 1-2x During Session Anxiety or Irritability: 2=Irritable/Anxious Goose Flesh Skin: 0=Smooth Skin COWS Score: 9 BHS Progress Note (SOAP) Subjective: alert,irritable,anxious,interrupted sleep,tremor,pain in the body and back Objective: 09/03/20 10:09 Vital Signs Temperature 97.7 F 09/03/20 08:30 Pulse Rate 72 09/03/20 08:30 Respiratory Rate 18 09/03/20 08:30 Blood Pressure 105/57 L 09/03/20 08:30 O2 Sat by Pulse Oximetry (%) 98 09/03/20 08:30 09/03/20 10:09 Laboratory Last Values WBC 7.0 K/mm3 (4.0-10.0) 09/01/20 07:05 RBC 4.50 M/mm3 (4.00-5.60) 09/01/20 07:05 Hgb 14.0 GM/dL (11.7-16.9) 09/01/20 07:05 Hct 39.8 % (35.4-49) D 09/01/20 07:05 MCV 88.5 fl (80-96) 09/01/20 07:05 MCH 31.2 pg (25.7-33.7) 09/01/20 07:05 MCHC 35.3 g/dl (32.0-35.9) 09/01/20 07:05 RDW 12.9 % (11.9-15.9) 09/01/20 07:05 Plt Count 163 K/MM3 (134-434) D 09/01/20 07:05 MPV 8.1 fl (7.5-11.1) 09/01/20 07:05 Sodium 142 mmol/L (136-145) 09/01/20 07:05 Potassium 4.2 mmol/L (3.5-5.1) 09/01/20 07:05 Chloride 109 mmol/L (98-107) H 09/01/20 07:05 Carbon Dioxide 30 mmol/L (21-32) 09/01/20 07:05 Anion Gap 3 MMOL/L (8-16) L 09/01/20 07:05 BUN 14.0 mg/dL (7-18) 09/01/20 07:05 Creatinine 0.8 mg/dL (0.55-1.3) 09/01/20 07:05 Est GFR (CKD-EPI)AfAm 135.08 09/01/20 07:05 Est GFR (CKD-EPI)NonAf 116.55 09/01/20 07:05 Random Glucose 69 mg/dL (74-106) L 09/01/20 07:05 Calcium 8.7 mg/dL (8.5-10.1) 09/01/20 07:05 Total Bilirubin 0.3 mg/dL (0.2-1) 09/01/20 07:05 AST 12 U/L (15-37) L 09/01/20 07:05 ALT 14 U/L (13-61) 09/01/20 07:05 Alkaline Phosphatase 53 U/L (45-117) 09/01/20 07:05 Total Protein 6.2 g/dl (6.4-8.2) L 09/01/20 07:05 Albumin 3.4 g/dl (3.4-5.0) 09/01/20 07:05 Syphilis Serology Non-reactive (NONREACTIVE) 09/01/20 07:05 COVID-19 ([facility]) Not detected (Not Detected) 08/31/20 18:20 Assessment: 09/03/20 10:09 withdrawal symptom Plan: continue detox methadone regimen
[2020-09-03] MEDS: NICOTINE 21 MG/24 HOURS TOPICAL PATCH TD SCH (10:12)
[2020-09-03] MEDS: PRENATAL VITAMINS W/ FOLIC ACID TABLET (FP) PO SCH (10:12)
[2020-09-03 14:21] VITALS: BP 105/64; PULSE 93; TEMP 97.1
--- NOTE | 2020-09-03 19:32 | PN ---
[facility] Progress Note Note: Patient states he has to leave. States needed o make an important phone call but when states would help to make call but declined. Alert and oriented. Gait steady. Faint tremor of hands. Lungs CTA. Abd S/NT/BS+ Vital Signs - 24 hr 09/02/20 09/03/20 09/03/20 20:25 05:23 08:30 Temperature 98.0 F 98.0 F 97.7 F Pulse Rate 80 59 L 72 Respiratory 18 16 18 Rate Blood Pressure 106/63 96/65 105/57 L O2 Sat by Pulse 99 94 L 98 Oximetry (%) 09/03/20 12:48 Temperature 97.1 F L Pulse Rate 93 H Respiratory 18 Rate Blood Pressure 105/64 O2 Sat by Pulse 98 Oximetry (%) Laboratory Last Values WBC 7.0 K/mm3 (4.0-10.0) 09/01/20 07:05 RBC 4.50 M/mm3 (4.00-5.60) 09/01/20 07:05 Hgb 14.0 GM/dL (11.7-16.9) 09/01/20 07:05 Hct 39.8 % (35.4-49) D 09/01/20 07:05 MCV 88.5 fl (80-96) 09/01/20 07:05 MCH 31.2 pg (25.7-33.7) 09/01/20 07:05 MCHC 35.3 g/dl (32.0-35.9) 09/01/20 07:05 RDW 12.9 % (11.9-15.9) 09/01/20 07:05 Plt Count 163 K/MM3 (134-434) D 09/01/20 07:05 MPV 8.1 fl (7.5-11.1) 09/01/20 07:05 Sodium 142 mmol/L (136-145) 09/01/20 07:05 Potassium 4.2 mmol/L (3.5-5.1) 09/01/20 07:05 Chloride 109 mmol/L (98-107) H 09/01/20 07:05 Carbon Dioxide 30 mmol/L (21-32) 09/01/20 07:05 Anion Gap 3 MMOL/L (8-16) L 09/01/20 07:05 BUN 14.0 mg/dL (7-18) 09/01/20 07:05 Creatinine 0.8 mg/dL (0.55-1.3) 09/01/20 07:05 Est GFR (CKD-EPI)AfAm 135.08 09/01/20 07:05 Est GFR (CKD-EPI)NonAf 116.55 09/01/20 07:05 Random Glucose 69 mg/dL (74-106) L 09/01/20 07:05 Calcium 8.7 mg/dL (8.5-10.1) 09/01/20 07:05 Total Bilirubin 0.3 mg/dL (0.2-1) 09/01/20 07:05 AST 12 U/L (15-37) L 09/01/20 07:05 ALT 14 U/L (13-61) 09/01/20 07:05 Alkaline Phosphatase 53 U/L (45-117) 09/01/20 07:05 Total Protein 6.2 g/dl (6.4-8.2) L 09/01/20 07:05 Albumin 3.4 g/dl (3.4-5.0) 09/01/20 07:05 Syphilis Serology Non-reactive (NONREACTIVE) 09/01/20 07:05 COVID-19 ([facility]) Not detected (Not Detected) 08/31/20 18:20 Reviewed labs w/ patient. Attempted to discuss the effects of methadone withdrawal on motivation and the desire to leave but refused to engage. Opioid overdose risks and prevention discussed, as uses Xanax, and states will be fine. Declined Narcan. Patient declined discussion r/t joining a MMTP Declined nicotine patch and gum. Patient left as an early discharge.
--- NOTE | 2020-09-03 19:34 | DS ---
[facility] Detox Discharge Summary Admission Date: 08/31/20 Discharge Date: 09/03/20 - History Present History: Cocaine Dependence, Opioid Dependence, Sedative Dependence Additional Comments: Heroin use since 27. Recent use abou2 15 bags daily - nasal. Methadone -states purchases from streets. (50-100mg PO doses) Xanax - 2-4 mg PO daily Pertinent Past History: Cocaine use since age 27. $60/day. Nicotine use since age 15. Smokes 2 PPD. PMHx: Denies significant PMH; Hx TB immunization as a child. + PPD. MHHx: Depression - r/t withdrawal symptoms. Denies thoughts of harming self or others. SHx: Domiciled. Unemployed. Denies legal. - Physical Exam Results Vital Signs: Vital Signs Temperature 97.1 F L 09/03/20 12:48 Pulse Rate 93 H 09/03/20 12:48 Respiratory Rate 18 09/03/20 12:48 Blood Pressure 105/64 09/03/20 12:48 O2 Sat by Pulse Oximetry (%) 98 09/03/20 12:48 Pertinent Admission Physical Exam Findings: Admitted for opioid detox and tolerated methadone. Was also receiving prn Valium for possible co-occurring anxiolytic withdrawal with decrease in acute withdrawal symptoms. Alert and oriented. Gait steady. Mild tremor felt in hands. Lungs CTA. Abd S/NT/BS+ Laboratory Last Values WBC 7.0 K/mm3 (4.0-10.0) 09/01/20 07:05 RBC 4.50 M/mm3 (4.00-5.60) 09/01/20 07:05 Hgb 14.0 GM/dL (11.7-16.9) 09/01/20 07:05 Hct 39.8 % (35.4-49) D 09/01/20 07:05 MCV 88.5 fl (80-96) 09/01/20 07:05 MCH 31.2 pg (25.7-33.7) 09/01/20 07:05 MCHC 35.3 g/dl (32.0-35.9) 09/01/20 07:05 RDW 12.9 % (11.9-15.9) 09/01/20 07:05 Plt Count 163 K/MM3 (134-434) D 09/01/20 07:05 MPV 8.1 fl (7.5-11.1) 09/01/20 07:05 Sodium 142 mmol/L (136-145) 09/01/20 07:05 Potassium 4.2 mmol/L (3.5-5.1) 09/01/20 07:05 Chloride 109 mmol/L (98-107) H 09/01/20 07:05 Carbon Dioxide 30 mmol/L (21-32) 09/01/20 07:05 Anion Gap 3 MMOL/L (8-16) L 09/01/20 07:05 BUN 14.0 mg/dL (7-18) 09/01/20 07:05 Creatinine 0.8 mg/dL (0.55-1.3) 09/01/20 07:05 Est GFR (CKD-EPI)AfAm 135.08 09/01/20 07:05 Est GFR (CKD-EPI)NonAf 116.55 09/01/20 07:05 Random Glucose 69 mg/dL (74-106) L 09/01/20 07:05 Calcium 8.7 mg/dL (8.5-10.1) 09/01/20 07:05 Total Bilirubin 0.3 mg/dL (0.2-1) 09/01/20 07:05 AST 12 U/L (15-37) L 09/01/20 07:05 ALT 14 U/L (13-61) 09/01/20 07:05 Alkaline Phosphatase 53 U/L (45-117) 09/01/20 07:05 Total Protein 6.2 g/dl (6.4-8.2) L 09/01/20 07:05 Albumin 3.4 g/dl (3.4-5.0) 09/01/20 07:05 Syphilis Serology Non-reactive (NONREACTIVE) 09/01/20 07:05 COVID-19 ([facility]) Not detected (Not Detected) 08/31/20 18:20 Reviewed labs w/ patient. Attempted to discuss the effects of methadone withdrawal on motivation and the desire to leave but refused to engage. Opioid overdose risks and prevention discussed, as also uses Xanax. States will be fine. Declined Narcan. Patient declined discussion r/t joining a MMTP Declined nicotine patch and gum. Patient left as an early discharge. - Treatment Hospital Course: Detox Protocol Followed (Left early.), Discharged Condition Good (Alert and oriented w/ steady gait.) - Medication Discharge Medications: Ambulatory Orders NK [No Known Home Medication] 08/31/20 - Diagnosis (1) Opioid dependence with withdrawal Status: Acute (2) Sedative, hypnotic or anxiolytic use disorder, moderate, in early remission, dependence Status: Acute (3) Cocaine dependence, uncomplicated Status: Chronic (4) History of positive PPD Status: Chronic (5) Nicotine dependence Status: Chronic Qualifiers: Nicotine product type: cigarettes Substance use status: uncomplicated Qualified Code(s): F17.210 - Nicotine dependence, cigarettes, uncomplicated - AMA Did Patient Leave Against Medical Advice: No (Patient left early. )
[2020-09-04] MEDS ORDERED: METHADONE HCL 10 MG TABLET (FOR DETOX USE ONLY) PO ONE (10:00)
[2020-09-05] MEDS ORDERED: METHADONE HCL 5 MG TABLET (FOR DETOX USE ONLY) PO ONE (06:00)
== END 2020-09-03 19:42 | disposition home or self-care (01) | DRG 773 ==
LOC: YASAS 13:13 → Y6N 18:01
PROVIDERS: ADMIT Allergy & Immunology; ATTEND Allergy & Immunology
PROC: HZ2ZZZZ Detoxification Services for Substance Abuse Treatment (ICD-10-PCS; principal; 2020-08-31)
DX: F11.23 Opioid dependence with withdrawal (principal); F14.20 Cocaine dependence, uncomplicated; F13.20 Sedative, hypnotic or anxiolytic dependence, uncomplicated; F17.210 Nicotine dependence, cigarettes, uncomplicated; F19.282 Other psychoactive substance dependence with psychoactive substance-induced sleep disorder; F32.9 Major depressive disorder, single episode, unspecified; R76.11 Nonspecific reaction to tuberculin skin test without active tuberculosis; Z56.0 Unemployment, unspecified; Z59.0 Homelessness
CPT/HCPCS: 36415; 80053; 85027; 86780; C9803; J0735; U0003

== ENCOUNTER 2021-08-20 15:00 | Inpatient (IN) | payer OTHER ==
[2021-08-20 15:56] VITALS: BMI 21.1
[2021-08-20] MEDS ORDERED: NICOTINE 21 MG/24 HOURS TOPICAL PATCH TD PRN (17:11)
[2021-08-20] MEDS ORDERED: METHOCARBAMOL 500 MG TABLET PO PRN (17:11)
[2021-08-20] MEDS ORDERED: MAGNESIUM HYDROX 2400MG/30ML ORAL SUSPENSION 30 ML CUP PO PRN (17:11)
[2021-08-20] MEDS ORDERED: NICOTINE 10 MG CARTRIDGE (INHALER) IH PRN (17:11)
[2021-08-20] MEDS ORDERED: BISMUTH SUBSALICYLATE 524 MG/30 ML PO PRN (17:11)
[2021-08-20] MEDS ORDERED: MAG HYDROX/AL HYDROX/SIMETH 30 ML UNIT-DOSE CUP PO PRN (17:11)
[2021-08-20] MEDS ORDERED: ONDANSETRON *ODT* 4 MG TABLET SL PRN (17:11)
[2021-08-20] MEDS ORDERED: MENTHOL/PHENOL 1 EACH UD MM PRN (17:11)
[2021-08-20] MEDS ORDERED: IBUPROFEN 400 MG TABLET (FP) PO PRN (17:11)
[2021-08-20] MEDS ORDERED: MAGNESIUM CITRATE 300 ML BOTTLE PO PRN (17:11)
[2021-08-20] MEDS ORDERED: ACETAMINOPHEN 325 MG TABLET (FP) PO PRN ×2 (17:11)
[2021-08-20] MEDS: PRENATAL VITAMINS W/ FOLIC ACID TABLET (FP) PO SCH ×2 (21:44→21:54)
[2021-08-20] MEDS: hydrOXYzine PAMOATE 25 MG CAPSULE (FP) PO SCH ×3 (21:44→21:57)
[2021-08-20] MEDS: MELATONIN 5 MG TABLETS PO SCH ×2 (21:45→21:55)
[2021-08-20] MEDS: THIAMINE HCL 100 MG TABLET (FP) PO SCH (21:55)
[2021-08-20] MEDS: NICOTINE POLACRILEX 2 MG GUM BC PRN (21:56)
[2021-08-21] MEDS: NICOTINE POLACRILEX 2 MG GUM BC PRN ×3 (02:24→22:07)
[2021-08-21] MEDS: hydrOXYzine PAMOATE 25 MG CAPSULE (FP) PO SCH ×5 (07:18→22:11)
[2021-08-21] MEDS ORDERED: cloNIDine HCL 0.1 MG TABLET PO PRN (09:42)
[2021-08-21] MEDS ORDERED: methaDONE HCL 10 MG TABLET (FOR DETOX USE ONLY) PO ONE (09:42)
[2021-08-21] MEDS: diazePAM 5 MG TABLET PO PRN ×2 (11:29→22:09)
[2021-08-21] MEDS: PRENATAL VITAMINS W/ FOLIC ACID TABLET (FP) PO SCH (11:29)
[2021-08-21 14:23] LABS: HEMATOCRIT 43.8 % (35.4-49); HEMOGLOBIN 15.3 GM/dL (11.7-16.9); MCH 30.9 pg (25.7-33.7); MCHC 34.8 g/dl (32.0-35.9); MEAN CELL VOLUME 88.8 fl (80-96); MEAN PLT VOLUME 7.6 fl (7.5-11.1); PLATELET COUNT 226 10^3/uL (134-434); RBC 4.94 M/mm3 (4.00-5.60); RDW 12.8 % (11.9-15.9); WHITE BLOOD COUNT 6.2 K/mm3 (4.0-10.0)
[2021-08-21 14:38] LABS: CALCIUM 8.9 mg/dL (8.5-10.1)
[2021-08-21 14:41] LABS: ALBUMIN 3.5 g/dl (3.4-5.0); BLOOD UREA NITROGEN 13.7 mg/dL (7-18)
[2021-08-21 14:43] LABS: CREATININE 0.8 mg/dL (0.55-1.3)
[2021-08-21 14:44] LABS: BILIRUBIN,TOTAL 0.4 mg/dL (0.2-1); TOT PROT 6.9 g/dl (6.4-8.2)
[2021-08-21] MEDS: THIAMINE HCL 100 MG TABLET (FP) PO SCH (22:11)
[2021-08-21] MEDS: MELATONIN 5 MG TABLETS PO SCH (22:11)
[2021-08-22] MEDS: hydrOXYzine PAMOATE 25 MG CAPSULE (FP) PO SCH ×3 (05:37→14:04)
[2021-08-22] MEDS ORDERED: methaDONE HCL 10 MG TABLET (FOR DETOX USE ONLY) ONE (08:56)
[2021-08-22] MEDS: NICOTINE POLACRILEX 2 MG GUM BC PRN (10:23)
[2021-08-22] MEDS: diazePAM 5 MG TABLET PO PRN ×2 (10:23→16:51)
[2021-08-22] MEDS: PRENATAL VITAMINS W/ FOLIC ACID TABLET (FP) PO SCH (10:40)
[2021-08-22] MEDS ORDERED: hydrOXYzine PAMOATE 25 MG CAPSULE (FP) PO PRN (15:52)
[2021-08-22] MEDS: MELATONIN 5 MG TABLETS PO SCH (23:06)
[2021-08-22] MEDS: THIAMINE HCL 100 MG TABLET (FP) PO SCH (23:06)
[2021-08-23] MEDS: diazePAM 5 MG TABLET PO PRN ×4 (01:55→21:32)
[2021-08-23] MEDS: NICOTINE POLACRILEX 2 MG GUM BC PRN ×2 (01:56→10:19)
[2021-08-23] MEDS ORDERED: methaDONE HCL 10 MG TABLET (FOR DETOX USE ONLY) PO ONE (10:00)
[2021-08-23] MEDS: PRENATAL VITAMINS W/ FOLIC ACID TABLET (FP) PO SCH (10:18)
[2021-08-23] MEDS: NICOTINE 10 MG CARTRIDGE (INHALER) IH PRN (22:40)
[2021-08-23] MEDS: MELATONIN 5 MG TABLETS PO SCH (22:41)
[2021-08-23] MEDS: THIAMINE HCL 100 MG TABLET (FP) PO SCH (22:44)
[2021-08-24] MEDS ORDERED: methaDONE HCL 10 MG TABLET (FOR DETOX USE ONLY) ONE (09:09)
[2021-08-24 09:49] VITALS: BP 107/67; PULSE 80; TEMP 97.7
[2021-08-24] MEDS: PRENATAL VITAMINS W/ FOLIC ACID TABLET (FP) PO SCH (11:11)
[2021-08-24] MEDS: NICOTINE 10 MG CARTRIDGE (INHALER) IH PRN (11:25)
[2021-08-25] MEDS ORDERED: methaDONE HCL 10 MG TABLET (FOR DETOX USE ONLY) PO ONE (10:00)
== END 2021-08-24 13:33 | disposition home or self-care (01) | DRG 773 ==
LOC: YASAS 15:00 → Y3N 19:37
PROVIDERS: ADMIT Allergy & Immunology; ATTEND Allergy & Immunology
PROC: HZ2ZZZZ Detoxification Services for Substance Abuse Treatment (ICD-10-PCS; principal; 2021-08-20)
DX: F11.23 Opioid dependence with withdrawal (principal); F10.230 Alcohol dependence with withdrawal, uncomplicated; F13.20 Sedative, hypnotic or anxiolytic dependence, uncomplicated; F17.210 Nicotine dependence, cigarettes, uncomplicated; F32.9 Major depressive disorder, single episode, unspecified; R76.11 Nonspecific reaction to tuberculin skin test without active tuberculosis
CPT/HCPCS: 36415; 71046-TC-FY; 80053; 82947; 83036; 85027; 86780; C9803; Q0162; U0003; U0005

== ENCOUNTER 2022-09-16 14:29 | Inpatient (IN) | payer OTHER ==
[2022-09-16 15:40] VITALS: BMI 21.7
[2022-09-16] MEDS ORDERED: MAGNESIUM CITRATE 300 ML BOTTLE PO PRN (16:57)
[2022-09-16] MEDS ORDERED: BISMUTH SUBSALICYLATE 524 MG/30 ML PO PRN (16:57)
[2022-09-16] MEDS ORDERED: NALOXONE HCL (KLOXXADO) 8 MG SPRAY NS PRN (16:57)
[2022-09-16] MEDS ORDERED: IBUPROFEN 600 MG TABLET (FP) PO PRN (16:57)
[2022-09-16] MEDS ORDERED: guaiFENesin 200 MG/10 ML 10 ML UNIT-DOSE CUPS PO PRN (16:57)
[2022-09-16] MEDS ORDERED: MAG HYDROX/AL HYDROX/SIMETH 30 ML UNIT-DOSE CUP PO PRN (16:57)
[2022-09-16] MEDS ORDERED: MAGNESIUM HYDROX 2400MG/30ML ORAL SUSPENSION 30 ML CUP PO PRN (16:57)
[2022-09-16] MEDS ORDERED: MELATONIN 5 MG TABLETS PO PRN (16:57)
[2022-09-16] MEDS ORDERED: LOPERAMIDE HCL 2 MG CAPSULE PO PRN (16:57)
[2022-09-16] MEDS ORDERED: P-EPHED 60MG/TRIPROLIDI 2.5MG TABLET PO PRN (16:57)
[2022-09-16] MEDS ORDERED: ACETAMINOPHEN 325 MG TABLET (FP) PO PRN ×2 (16:57)
[2022-09-16] MEDS ORDERED: ONDANSETRON *ODT* 4 MG TABLET SL PRN (16:57)
[2022-09-16] MEDS ORDERED: IBUPROFEN 400 MG TABLET (FP) PO PRN (16:57)
[2022-09-16] MEDS ORDERED: BENZOCAINE/MENTHOL (CHLORASEPTIC ) LOZENGE MM PRN (16:57)
[2022-09-16] MEDS ORDERED: DICYCLOMINE HCL 10 MG CAPSULE PO PRN (16:57)
[2022-09-16] MEDS ORDERED: NICOTINE 10 MG CARTRIDGE (INHALER) IH PRN (16:57)
[2022-09-16] MEDS ORDERED: NALOXONE HCL 0.4 MG/ML VIAL IM PRN (16:57)
[2022-09-16] MEDS: NICOTINE POLACRILEX 2 MG GUM BUC PRN (17:46)
[2022-09-16] MEDS: METHOCARBAMOL 500 MG TABLET PO PRN (17:48)
[2022-09-16] MEDS: diazePAM 5 MG TABLET PO PRN (17:48)
[2022-09-16] MEDS: THIAMINE HCL 100 MG TABLET (FP) PO SCH (23:10)
[2022-09-16] MEDS ORDERED: methaDONE HCL 10 MG TABLET (FOR DETOX USE ONLY) PO ONE (23:10)
[2022-09-16] MEDS ORDERED: cloNIDine HCL 0.1 MG TABLET PO PRN (23:10)
[2022-09-17] MEDS: NICOTINE POLACRILEX 2 MG GUM BUC PRN ×2 (04:55→09:42)
[2022-09-17] MEDS: hydrOXYzine PAMOATE 25 MG CAPSULE (FP) PO PRN (10:31)
[2022-09-17] MEDS: METHOCARBAMOL 500 MG TABLET PO PRN (10:31)
[2022-09-17] MEDS: PRENATAL VITAMINS W/ FOLIC ACID TABLET (FP) PO SCH (10:31)
[2022-09-17] MEDS: diazePAM 5 MG TABLET PO PRN ×2 (10:32→17:48)
[2022-09-17 13:18] LABS: HEMATOCRIT 43.1 % (35.4-49); HEMOGLOBIN 14.7 GM/dL (11.7-16.9); MCH 30.5 pg (25.7-33.7); MCHC 34.2 g/dl (32.0-35.9); MEAN CELL VOLUME 89.1 fl (80-96); MEAN PLT VOLUME 7.5 fl (7.5-11.1); PLATELET COUNT 252 10^3/uL (134-434); RBC 4.84 M/mm3 (4.00-5.60); RDW 13.4 % (11.9-15.9); WHITE BLOOD COUNT 6.1 K/mm3 (4.0-10.0)
[2022-09-17 13:37] LABS: ALBUMIN 3.7 g/dl (3.4-5.0); BLOOD UREA NITROGEN 12.3 mg/dL (7-18)
[2022-09-17 13:39] LABS: CREATININE 0.8 mg/dL (0.55-1.3)
[2022-09-17 13:40] LABS: BILIRUBIN,TOTAL 0.2 mg/dL (0.2-1); TOT PROT 6.8 g/dl (6.4-8.2)
[2022-09-17] MEDS: THIAMINE HCL 100 MG TABLET (FP) PO SCH (22:48)
[2022-09-18] MEDS: NICOTINE POLACRILEX 2 MG GUM BUC PRN ×2 (07:17→10:01)
[2022-09-18] MEDS: diazePAM 5 MG TABLET PO PRN ×2 (07:20→11:43)
[2022-09-18 09:06] VITALS: BP 117/75; PULSE 64; RESP 16; TEMP 96.9
[2022-09-18] MEDS: METHOCARBAMOL 500 MG TABLET PO PRN (09:59)
[2022-09-18] MEDS: PRENATAL VITAMINS W/ FOLIC ACID TABLET (FP) PO SCH (09:59)
[2022-09-18] MEDS: hydrOXYzine PAMOATE 25 MG CAPSULE (FP) PO PRN (09:59)
[2022-09-18] MEDS ORDERED: methaDONE HCL 10 MG TABLET (FOR DETOX USE ONLY) PO ONE (10:00)
[2022-09-20] MEDS ORDERED: methaDONE HCL 10 MG TABLET (FOR DETOX USE ONLY) PO ONE (10:00)
== END 2022-09-18 13:05 | disposition left against medical advice (07) | DRG 770 ==
LOC: YASAS 14:29 → Y6N 17:23
PROVIDERS: ADMIT Allergy & Immunology; ATTEND Surgery
PROC: HZ2ZZZZ Detoxification Services for Substance Abuse Treatment (ICD-10-PCS; principal; 2022-09-16)
DX: F11.23 Opioid dependence with withdrawal (principal); F14.20 Cocaine dependence, uncomplicated; F13.20 Sedative, hypnotic or anxiolytic dependence, uncomplicated; F17.210 Nicotine dependence, cigarettes, uncomplicated; L03.113 Cellulitis of right upper limb; L03.114 Cellulitis of left upper limb; M54.50 Low back pain, unspecified; G89.29 Other chronic pain; R76.11 Nonspecific reaction to tuberculin skin test without active tuberculosis
CPT/HCPCS: 36415; 80053; 85027; 86780; C9803-CS; U0003; U0005

== ENCOUNTER 2022-12-03 11:38 | Inpatient (IN) | payer OTHER ==
[2022-12-03 13:15] VITALS: BMI 18.9
[2022-12-03] MEDS ORDERED: METHOCARBAMOL 500 MG TABLET PO PRN (15:01)
[2022-12-03] MEDS ORDERED: BISMUTH SUBSALICYLATE 262 MG/15 ML BTL PO PRN (15:01)
[2022-12-03] MEDS ORDERED: LOPERAMIDE HCL 2 MG CAPSULE PO PRN (15:01)
[2022-12-03] MEDS ORDERED: IBUPROFEN 400 MG TABLET (FP) PO PRN (15:01)
[2022-12-03] MEDS ORDERED: MAGNESIUM HYDROX 2400MG/30ML ORAL SUSPENSION 30 ML CUP PO PRN (15:01)
[2022-12-03] MEDS ORDERED: NICOTINE 10 MG CARTRIDGE (INHALER) IH PRN (15:01)
[2022-12-03] MEDS ORDERED: MAG HYDROX/AL HYDROX/SIMETH 30 ML UNIT-DOSE CUP PO PRN (15:01)
[2022-12-03] MEDS ORDERED: cloNIDine HCL 0.1 MG TABLET PO PRN (15:01)
[2022-12-03] MEDS ORDERED: IBUPROFEN 600 MG TABLET (FP) PO PRN (15:01)
[2022-12-03] MEDS ORDERED: ONDANSETRON *ODT* 4 MG TABLET SL PRN (15:01)
[2022-12-03] MEDS ORDERED: DICYCLOMINE HCL 10 MG CAPSULE PO PRN (15:01)
[2022-12-03] MEDS ORDERED: methaDONE HCL 10 MG TABLET (FOR DETOX USE ONLY) PO ONE (15:01)
[2022-12-03] MEDS ORDERED: NALOXONE HCL (KLOXXADO) 8 MG SPRAY NS PRN (15:01)
[2022-12-03] MEDS ORDERED: BENZOCAINE/MENTHOL (CHLORASEPTIC ) LOZENGE MM PRN (15:01)
[2022-12-03] MEDS ORDERED: ACETAMINOPHEN 325 MG TABLET (FP) PO PRN ×2 (15:01)
[2022-12-03] MEDS ORDERED: POLYETHYLENE GLYCOL (HEALTHYLAX) 3350 17 GM PACKET PO PRN (15:01)
[2022-12-03] MEDS ORDERED: methaDONE HCL 10 MG TABLET (FOR DETOX USE ONLY) ONE (15:25)
[2022-12-03] MEDS: MELATONIN 5 MG TABLETS PO SCH (22:43)
[2022-12-03] MEDS: THIAMINE HCL 100 MG TABLET (FP) PO SCH (22:44)
[2022-12-04] MEDS: PRENATAL VITAMINS W/ FOLIC ACID TABLET (FP) PO SCH (10:01)
[2022-12-04] MEDS: NICOTINE POLACRILEX 4 MG GUM BUC PRN ×4 (10:04→19:24)
[2022-12-04] MEDS: diazePAM 5 MG TABLET PO PRN ×3 (12:16→21:05)
[2022-12-04 12:51] LABS: HEMATOCRIT 44.8 % (35.4-49); HEMOGLOBIN 15.2 GM/dL (11.7-16.9); MCH 30.1 pg (25.7-33.7); MCHC 33.9 g/dl (32.0-35.9); MEAN CELL VOLUME 88.9 fl (80-96); MEAN PLT VOLUME 7.6 fl (7.5-11.1); PLATELET COUNT 232 10^3/uL (134-434); RBC 5.04 M/mm3 (4.00-5.60); RDW 13.7 % (11.9-15.9); WHITE BLOOD COUNT 7.1 K/mm3 (4.0-10.0)
[2022-12-04 14:11] LABS: CALCIUM 9.5 mg/dL (8.5-10.1)
[2022-12-04 14:12] LABS: BLOOD UREA NITROGEN 13.9 mg/dL (7-18)
[2022-12-04 14:15] LABS: CREATININE 0.9 mg/dL (0.55-1.3)
[2022-12-04 14:16] LABS: BILIRUBIN,TOTAL 0.3 mg/dL (0.2-1); TOT PROT 7.3 g/dl (6.4-8.2)
[2022-12-04] MEDS: THIAMINE HCL 100 MG TABLET (FP) PO SCH (23:24)
[2022-12-04] MEDS: MELATONIN 5 MG TABLETS PO SCH (23:24)
[2022-12-05] MEDS: diazePAM 5 MG TABLET PO PRN (02:29)
[2022-12-05] MEDS: NICOTINE POLACRILEX 4 MG GUM BUC PRN (02:30)
[2022-12-05] MEDS ORDERED: methaDONE HCL 10 MG TABLET (FOR DETOX USE ONLY) PO ONE (10:00)
[2022-12-05 10:31] VITALS: BP 122/79; PULSE 99; RESP 18; TEMP 97.7
[2022-12-05] MEDS: PRENATAL VITAMINS W/ FOLIC ACID TABLET (FP) PO SCH (10:36)
[2022-12-07] MEDS ORDERED: methaDONE HCL 10 MG TABLET (FOR DETOX USE ONLY) PO ONE (10:00)
== END 2022-12-05 12:20 | disposition left against medical advice (07) | DRG 770 ==
LOC: YASAS 11:38 → Y3N 15:21
PROVIDERS: ADMIT Allergy & Immunology; ATTEND Surgery
PROC: HZ2ZZZZ Detoxification Services for Substance Abuse Treatment (ICD-10-PCS; principal; 2022-12-03)
DX: F11.23 Opioid dependence with withdrawal (principal); F13.20 Sedative, hypnotic or anxiolytic dependence, uncomplicated; F17.210 Nicotine dependence, cigarettes, uncomplicated; R63.4 Abnormal weight loss; Z68.1 Body mass index [BMI] 19.9 or less, adult
CPT/HCPCS: 36415; 80053; 85027; 86780; 87811; C9803-CS; U0003; U0005